=== PATIENT | female | born 1985 | race Caucasian/White ===

== ENCOUNTER 2020-01-22 09:28 | Emergency (ER) | payer MEDICAID, SELFPAY ==
[2020-01-22 10:07] VITALS: BP 117/65; PULSE 92; RESP 18; TEMP 36.9; O2SAT 98; BMI 49.6
--- NOTE | 2020-01-22 10:08 | HMH.EDUTC ---
[facility] [place] Impression: Sinusitis Qualifiers: Sinusitis location: maxillary Chronicity: acute Recurrence: non-recurrent Qualified Code(s): J01.00 - Acute maxillary sinusitis, unspecified Disposition: Home, Self-Care Condition on Discharge: Good Instructions: DI for Sinusitis Prescriptions: Amoxicillin [Amoxicillin 875MG Tab] 875 mg PO Q12H #20 tab Transmission Status: Pending to [facility] # predniSONE [Prednisone 20mg Tab] 20 mg PO BID 5 Days #10 tab Transmission Status: Pending to [facility] # Referrals: Gaby Staples [Primary Care Provider] - Time of Disposition: 10:13 Medical Decision Making - Timbo Inquiry Pt receiving controlled substance: No [facility] [place] - General Stated complaint: soa Time Seen by Provider: 01/22/20 10:08 - History of Present Illness Provider Complaint: Cough, congestion, wheezing, sinus pressure and drainage X 5 days. No fever. No vomiting or diarrhea. No loss of taste or smell. No known exposure to COVID19. Has history of allergies. Taking Sudafed and Mucinex. Onset (ago): day(s) (5) Location: chest Relieving factors: none Exacerbating factors: none Associated symptoms: cough Treatments prior to arrival: other (Mucinex, Sudafed) - Related Data Previous Rx's Medication Instructions Recorded Amoxicillin [Amoxicillin 875MG 875 mg PO Q12H #20 tab 01/22/20 Tab] predniSONE [Prednisone 20mg 20 mg PO BID 5 Days #10 tab 01/22/20 Tab] [facility] History - Hepatitis A Screen Attestation statement:: This patient has been screened for Hepatitis A risk factors. I have reviewed the patient's past medical history: Yes ROS Obtained: Yes All systems reviewed & no additional complaints - ENT Ears, Nose, Mouth, and Throat: Reports post nasal drip, Reports sinus pain, Reports sinus pressure - Respiratory Respiratory: Yes cough Physical Exam - General General appearance: alert, in no apparent distress - Head Head exam: atraumatic, normocephalic, normal inspection - Eye Eye exam: Present: normal appearance, PERRL, EOMI - ENT ENT exam: Present: normal exam, normal oropharynx, mucous membranes moist, TM's normal bilaterally, normal external ear exam - Expanded ENT Exam Nose exam: Present: sinus tenderness Throat exam: Present: other (post nasal drainage) - Neck Neck exam: Present: normal inspection, full ROM, trachea midline. Absent: meningismus, lymphadenopathy - Chest Chest inspection: Present: normal inspection, symmetric chest wall rise. Absent: tenderness - Respiratory Respiratory exam: Present: wheezes. Absent: respiratory distress - Cardiovascular Cardiovascular exam: Present: regular rate, normal rhythm. Absent: JVD - Abdominal Exam Abdominal exam: Present: soft, normal bowel sounds. Absent: distention, tenderness, guarding - Extremities Exam Extremities exam: Present: normal inspection, full ROM, normal capillary refill. Absent: calf tenderness - Back Exam Back exam: Present: normal inspection. Absent: tenderness - Neurological Exam Neurological exam: Present: alert, oriented X3 - Psychiatric Psychiatric exam: Present: normal affect, normal mood - Skin Skin exam: Present: warm, dry, intact, normal color - Lymphatic Lymphatic Findings: no adenopathy
[2020-01-22 10:22] VITALS: BP 117/65; PULSE 92; RESP 18; TEMP 36.9; O2SAT 98
== END 2020-01-22 10:40 | disposition home or self-care (01) ==
PROVIDERS: Emergency Provider Physician Assistant; PCP Family Medicine Geriatric Medicine
DX: J01.00 Acute maxillary sinusitis, unspecified (principal)
CPT/HCPCS: 99201

== ENCOUNTER 2020-05-17 11:58 | Emergency (ER) | payer SELFPAY ==
[2020-05-17 12:14] VITALS: BP 122/88; PULSE 94; RESP 16; TEMP 36.9; O2SAT 97; BMI 52.0
--- NOTE | 2020-05-17 12:32 | HMH.EDUTC ---
[facility] [place] Clinical Impression: Sinusitis Qualifiers: Sinusitis location: unspecified location Chronicity: acute Recurrence: non-recurrent Qualified Code(s): J01.90 - Acute sinusitis, unspecified Disposition: Home, Self-Care Condition on Discharge: Good Instructions: Sinusitis, DI for Sinusitis Additional Instructions: Drink plenty of fluids. Take tylenol for pain or fever. Return if you begin to have difficulty breathing. Follow up with your regular doctor. GO TO THE ER FOR ANY WORSENING SYMPTOMS Prescriptions: Amoxicillin/Potassium Clav [Augmentin 875-125 Tablet] 1 tab PO Q12H 10 Days #20 tab Transmission Status: Received by [facility] #[id number] predniSONE [Prednisone 20mg Tab] 20 mg PO BID 5 Days #10 tab Transmission Status: Received by [facility] # Benzonatate [Tessalon Perle 100mg Cap] 100 mg PO TIDP PRN #30 cap PRN Reason: Cough Transmission Status: Received by [facility] #[id number] Referrals: PCP,No [Primary Care Provider] - Forms: Work/School Release Time of Disposition: 12:35 Medical Decision Making - Medical Records Medical records reviewed: No: I reviewed the patient's medical records. - Timbo Inquiry Pt receiving controlled substance: No Vital Signs: 05/17/20 12:14 05/17/20 12:38 Temperature 98.4 F 98 F Temperature Source Oral Pulse Rate 86 Pulse Rate [Right] 94 H Respiratory Rate 16 14 Blood Pressure 120/79 Blood Pressure [Right Arm] 122/88 Blood Pressure Mean [Right Arm] 99 Blood Pressure Source [Right Arm] Automatic Cuff Blood Pressure Position [Right Arm] Sitting 02 Sat by Pulse Oximetry 97 Oxygen Delivery Method Room Air [facility] [place] HPI - General Stated complaint: possible sinus infection, cov test Time Seen by Provider: 05/17/20 12:32 Mode of Arrival: Ambulatory Source of Information: Patient Limitations: No Limitations Description of Symptoms (Recalled from Triage Doc. by RN): pt states she thinks she has a sinus infection. she is having sinus pressure, fraga, and nasal congestion. she says it feels the same as when she has had them in the past. however, her employer is requesting a covid test to return to work. HEENT Symptoms (Recalled from RN notes): Yes (nasal congestion, sinus pressure, FRAGA) Resp Symptoms (Recalled from RN notes): No Skin Symptoms (Recalled from RN notes): No MS Symptoms (Recalled from RN notes): No Functional Status (Recalled from RN notes): na - History of Present Illness Provider Complaint: She states that for the past 2 days she has had worsening sinus congestion, nasal drainage, sore throat and bilateral ear pain. She denies any known exposure to covid-19, but she works in a bank around a lot of people. - Related Data Previous Rx's Medication Instructions Recorded Amoxicillin/Potassium Clav 1 tab PO Q12H 10 Days #20 tab 05/17/20 [Augmentin 875-125 Tablet] Benzonatate [Tessalon Perle 100mg 100 mg PO TIDP PRN #30 cap 05/17/20 Cap] predniSONE [Prednisone 20mg 20 mg PO BID 5 Days #10 tab 05/17/20 Tab] Allergies Allergy/AdvReac Type Severity Reaction Status Date / Time No Known Allergies Allergy Verified 05/17/20 12:03 - Worker's Comp Is this a Worker's Comp case?: No [facility] History - Hepatitis A Screen Drug use history?: No High risk sexual behaviors?: No History of sexually transmitted infection?: No Currently employed?: No Childcare worker?: No Do you have indoor plumbing?: Yes Do you have electricity?: Yes Attestation statement:: This patient has been screened for Hepatitis A risk factors. I have reviewed the patient's past medical history: Yes Medical History: Denies:: Cancer, Diabetes Mellitus Type 1, Diabetes Mellitus Type 2, Internal Pacemaker, MRSA Other Surgeries: No: Pacemaker Amputation: No Fractures: No - Social History Smoking Status: Current every day smoker Tobacco Type: cigarettes, smokeless tobacco # Packs/Day (cigarettes): 1 Al
[2020-05-17 12:38] VITALS: BP 120/79; PULSE 86; RESP 14; TEMP 36.6
--- NOTE | 2020-05-17 16:32 | PC.NURSE ---
called and left a message requesting her to call back.
--- NOTE | 2020-05-17 16:45 | PC.NURSE ---
called and spoke with pt relaying positive covid results.
== END 2020-05-17 12:41 | disposition home or self-care (01) ==
PROVIDERS: Emergency Provider Nurse Practitioner Family
DX: J01.90 Acute sinusitis, unspecified (principal)
CPT/HCPCS: 99202; G0463; U0003

== ENCOUNTER 2021-03-23 13:31 | Emergency (ER) | payer OTHER, SELFPAY ==
[2021-03-23 13:35] VITALS: BP 127/78; PULSE 92; RESP 20; TEMP 36.5; O2SAT 96; BMI 50.4
[2021-03-23 13:56] VITALS: BP 127/78; PULSE 92; RESP 20; TEMP 36.5; O2SAT 96
--- NOTE | 2021-03-23 13:59 | HMH.EDUTC ---
[facility] [place]ression: URI (upper respiratory infection) Qualifiers: URI type: unspecified URI Qualified Code(s): J06.9 - Acute upper respiratory infection, unspecified Disposition: Home, Self-Care Condition on Discharge: Good Instructions: Sore Throat, DI for Nasal Congestion Additional Instructions: *Monitor Temp, Over the counter Motrin or Tylenol as directed/as needed Tylenol every 4 hours and Motrin every 6 hours (as long as your family doctor has told you that you can take it) for fever or pain. and straight to ER if unable to lower temp less than 101.0 after medication given *Warm salt water gargles may help to soothe the throat *Throat Lozenges *Warm fluids like tea with honey may help to soothe the throat *Sleep elevated *Humidifier/Vaporizer Over the counter Sudafed for nasal congestion Return if needed Follow up IMMEDIATELY for new or worsening symptoms or no Noticeable improvement over the next 48-72 hours. 911 for difficulty breathing or swallowing Referrals: Provider,Referral, MD [Primary Care Provider] - As needed Forms: Work/School Release Medical Decision Making - Timbo Inquiry Pt receiving controlled substance: No Timbo was queried for this patient: No Vital Signs: 03/23/21 13:35 03/23/21 13:56 Temperature 97.7 F 97.7 F Temperature Source Temporal Artery Scan Pulse Rate 92 H Pulse Rate [Right Brachial] 92 H Respiratory Rate 20 20 Blood Pressure 127/78 Blood Pressure [Right Arm] 127/78 Blood Pressure Mean [Right Arm] 94 Blood Pressure Source [Right Arm] Automatic Cuff Blood Pressure Position [Right Arm] Sitting 02 Sat by Pulse Oximetry 96 Oxygen Delivery Method Room Air [facility] [place] - General Stated complaint: congestion Time Seen by Provider: 03/23/21 14:00 Mode of Arrival: Ambulatory Source of Information: Patient Limitations: No Limitations Description of Symptoms (Recalled from Triage Doc. by RN): PATIENT REPORTS SHE WAS SICK A FEW DAYS AGO AND NEEDS A NOTE TO RETURN TO WORK HEENT Symptoms (Recalled from RN notes): No Resp Symptoms (Recalled from RN notes): No Skin Symptoms (Recalled from RN notes): No MS Symptoms (Recalled from RN notes): No Functional Status (Recalled from RN notes): WNL - History of Present Illness Provider Complaint: Patient state that she has sinus issues States that she woke up a few days ago with sinus congestion and headache and was not able to go to work States that she has been taking sudafed and feels much better but work needs her to get a note to return - Related Data Previous Rx's Medication Instructions Recorded Amoxicillin/Potassium Clav 1 tab PO Q12H 10 Days #20 tab 05/17/20 [Augmentin 875-125 Tablet] Benzonatate [Tessalon Perle 100mg 100 mg PO TIDP PRN #30 cap 05/17/20 Cap] predniSONE [Prednisone 20mg 20 mg PO BID 5 Days #10 tab 05/17/20 Tab] Allergies Allergy/AdvReac Type Severity Reaction Status Date / Time No Known Allergies Allergy Verified 05/17/20 12:03 - Worker's Comp Is this a Worker's Comp case?: No [facility] History - Hepatitis A Screen Drug use history?: No High risk sexual behaviors?: No History of sexually transmitted infection?: No Currently employed?: No Childcare worker?: No Do you have indoor plumbing?: Yes Do you have electricity?: Yes Attestation statement:: This patient has been screened for Hepatitis A risk factors. I have reviewed the patient's past medical history: Yes Medical History: Denies:: Cancer, Diabetes Mellitus Type 1, Diabetes Mellitus Type 2, Internal Pacemaker, MRSA Other Surgeries: No: Pacemaker Amputation: No Fractures: No - Social History Smoking Status: Current every day smoker Tobacco Type: cigarettes, smokeless tobacco # Packs/Day (cigarettes): 1 Alcohol Intake: never Occupational Status: employed Housing: house Household Members: significant other ROS Obtained: Yes All systems reviewed & no additional complaints, Yes Syste
== END 2021-03-23 14:03 | disposition home or self-care (01) ==
PROVIDERS: Emergency Provider Nurse Practitioner
DX: J06.9 Acute upper respiratory infection, unspecified (principal); F17.210 Nicotine dependence, cigarettes, uncomplicated
CPT/HCPCS: 99202; G0463

== ENCOUNTER 2023-03-02 09:05 | Emergency (ER) | payer OTHER, SELFPAY ==
[2023-03-02 09:15] VITALS: BP 137/100; PULSE 122; RESP 20; TEMP 37.7; O2SAT 97; BMI 49.4
--- NOTE | 2023-03-02 09:41 | EXP.UTC ---
Discharge Plan Disposition Patient Disposition: Home, Self-Care Condition: Good Prescriptions Prescriptions: New prednisone [prednisone] 20 mg tablet 20 mg PO DAILY 4 Days Qty: 4 0RF No Action prednisone 20 MG tablet 20 mg PO BID 5 Days Qty: 10 0RF benzonatate 100 MG capsule 100 mg PO TIDP PRN (Reason: Cough) Qty: 30 0RF amoxicillin-pot clavulanate 1 EACH tablet 1 tab PO Q12H 10 Days Qty: 20 0RF Referrals Follow up/Referrals: Chace Lee MD [Primary Care Provider] - See instructions Activity Restrictions/Add. Instructions Additional Instructions/Restrictions: Drink plenty of fluids. Take tylenol or ibuprofen for pain or fever. Take the medications as directed. Follow up with your regular doctor. GO TO THE ER FOR ANY WORSENING SYMPTOMS Throw your tooth brush away and get a new one. Finis the amoxicillin that you are already taking. Clinical Impressions Clinical Impression: Strep throat Stand Alone Forms Stand Alone Forms: Work/School Release Instructions Patient Instructions: DI for Strep Throat, Strep Throat Discharge ED Provider: Edgar Amaya [facility] General Stated complaint: sore throat, cough Mode of Arrival: Ambulatory Source of Information: Patient Limitations: No Limitations Time Seen by Provider: 03/02/23 09:40 Description of Symptoms (Recalled from Triage Doc. by RN): PATIENT STATES SHE WAS DIAGNOSED WITH STREP ON 02/28 AND WAS GIVEN AMOXICILLIN, BUT HER SYMPTOMS HAVE GOTTEN WORSE HEENT Symptoms (Recalled from RN notes): Yes Resp Symptoms (Recalled from RN notes): No Skin Symptoms (Recalled from RN notes): No MS Symptoms (Recalled from RN notes): No Functional Status (Recalled from RN notes): WNL History of Present Illness Provider Complaint: She states that she was diagnosed with strep throat 2 days ago. She states that she is taking amoxicillin and not getting any better. She continues to have a severe sore throat. She denies any shortness of breath, drooling and other symptoms. She request a steroid shot and a bicillin shot. Related Data Previous Rx's Medication Instructions Recorded amoxicillin 875 mg-potassium 1 tab PO Q12H 10 days #20 tabs 05/17/20 clavulanate 125 mg tablet benzonatate 100 mg capsule 100 mg PO TIDP PRN Cough #30 caps 03/03/21 prednisone 20 mg tablet 20 mg PO BID 5 days #10 tabs 05/17/20 prednisone 20 mg tablet 20 mg PO DAILY 4 days #4 tabs 03/02/23 Allergies Allergy/AdvReac Type Severity Reaction Status Date / Time No Known Allergies Allergy Verified 05/17/20 12:03 Worker's Comp Is this a Worker's Comp case?: No [facility] Disclaimer: The information contained in this section may have been updated after the patient was seen, as this information can be updated by other users. Social History Smoking Status: Current every day smoker tobacco type: cigarettes packs per day: 1 and smokeless tobacco second hand exposure: No alcohol intake: never current occupational status: employed Travel in the last 8 weeks: None household members: significant other housing: house current occupational exposures/hazards: No caffeine: Yes ROS Obtained: Yes All systems reviewed & no additional complaints except as documented Constitutional Constitutional: Reports chills and Reports fever(s) Eyes Eyes: Denies eye discharge ENT Ears, Nose, Mouth, and Throat: Reports as per HPI Cardiovascular Cardiovascular: Denies chest pain Respiratory Respiratory: Denies chest congestion and Reports cough Gastrointestinal Gastrointestingal: Reports nausea; Denies abdominal pain, constipation, cramping, diarrhea or vomiting Musculoskeletal Musculoskeletal: Denies arthralgias Integumentary/Breasts Skin/Breast: Denies rash Neurologic Neurologic: Denies paresthesias Physical Exam General General appearance: alert and in no apparent distress Head Head exam: atraumatic, normocephalic and normal inspection Eye
[2023-03-02 10:13] VITALS: BP 137/100; PULSE 122; RESP 20; TEMP 37.7; O2SAT 97
== END 2023-03-02 10:16 | disposition home or self-care (01) ==
PROVIDERS: Emergency Provider Nurse Practitioner Family; PCP Emergency Medicine
DX: J02.0 Streptococcal pharyngitis (principal); R07.0 Pain in throat; R05.9 Cough, unspecified; R50.9 Fever, unspecified; F17.210 Nicotine dependence, cigarettes, uncomplicated
CPT/HCPCS: 96372; 99212; 99214; G0463; J0561

== ENCOUNTER 2024-10-13 10:24 | Outpatient (CLI) | payer BC, SELFPAY ==
--- OUTSIDE RECORDS SUMMARY | 2024-10-13 10:33 | XMS_ITS | Encounter Summary ---
Author Organization Healthcare Address [address] [place] [address] Care Team Providers Care Restaurant Manager Name Role Phone Ramiro Aceves MD Primary Care Provider [phone] Encounter Details Date Type Department Care Team (Late st Contact Info) Description 08/21/2017 Orders Only External Location [address] [place] [address] Ramiro Aceves MD [address] [place] [address] Social History Tobacco Use Types Packs/Day Years Used Date Smoking Tobacco: Never Assessed Comments Unknown Sex and Gender Information Value Date Recorded Sex Assigned at Not on file Legal Sex Female 8:27 PM EDT Gender Identity Female 05/13/2021 9:01 AM EST Sexual Orientation Not on file documented as of this encounter Plan of Treatment Not on file documented as of this encounter Procedures Procedure Name Priority Date/Time Associated Diagnosis Comments MAMMOGRAPHY OUTSIDE IMAGES UPLOAD 08/21/2017 1:20 PM EDT documented in this encounter Results * Mammography Outside Images Upload (08/21/2017 1:20 PM EDT) Anatomical Region Laterality Modality Mammography 08/21/2017 1:20 PM EDT us Ramiro Aceves MD IMG BI PROCEDURES Final Resul t documented in this encounter Visit Diagnoses Not on filedocumented in this encounter Care Teams Restaurant Manager Relationship Specialty Start Date End Date Ramiro Aceves MD [address] [place] [address] PCP - General 07/28/20 documented as of this encounter
--- OUTSIDE RECORDS SUMMARY | 2024-10-13 10:33 | XMS_ITS | Encounter Summary ---
Author Organization Healthcare Address [address] [place] [address] Care Team Providers Care Professor Of Marketing Name Role Phone Ramiro Aceves MD Primary Care Provider [phone] Encounter Details Date Type Department Care Team (Late st Contact Info) Description 02/13/2017 Orders Only External Location [address] [place] [address] Ramiro Aceves MD [address] [place] [address] Social History Tobacco Use Types [...] Associated Diagnosis Comments MAMMOGRAPHY OUTSIDE IMAGES UPLOAD 02/13/2017 2:07 PM EST documented in this encounter Results * Mammography Outside Images Upload (02/13/2017 2:07 PM EST) Anatomical Region Laterality Modality Mammography 02/13/2017 2:07 PM EST us Ramiro Aceves MD IMG BI PROCEDURES Final Resul t documented in this encounter Visit Diagnoses Not on filedocumented in this encounter Care Teams Professor Of Marketing Relationship Specialty Start Date End Date Ramiro Aceves MD [address] [place] [address] PCP - General 07/28/20 documented as of this encounter
--- OUTSIDE RECORDS SUMMARY | 2024-10-13 10:33 | XMS_ITS | Encounter Summary ---
Author Organization Healthcare Address [address] [place] [address] Care Team Providers Care Home Economist Consumer Service Name Role Phone Ramiro Aceves MD Primary Care Provider Encounter Details Date Type Department Care Team (Late st Contact Info) Description 08/08/2016 Orders Only External Location [address] [place] [address] Ramiro Aceves MD [address] [place] [address] Social History Tobacco Use Types Packs/Day Years [...] Procedure Name Priority Date/Time Associated Diagnosis Comments US OUTSIDE IMAGES 08/08/2016 3:56 PM EDT documented in this encounter Results * US OUTSIDE IMAGES (08/08/2016 3:56 PM EDT) Anatomical Region Laterality Modality Ultrasound 08/08/2016 3:56 PM EDT us Ramiro Aceves MD IMG US PROCEDURES Final Resul t documented in this encounter Visit Diagnoses Not on filedocumented in this encounter Care Teams Home Economist Consumer Service Relationship Specialty Start Date End Date Ramiro Aceves MD [address] [place] [address] PCP - General 07/28/20 documented as of this encounter
--- OUTSIDE RECORDS SUMMARY | 2024-10-13 10:33 | XMS_ITS | Clinical Summary ---
Author Organization Healthcare Address [address] [place] [address] Care Team Providers Care Avionics Manager Name Role Phone Ramiro Aceves MD Primary Care Provider [phone] Allergies No known active allergies Medications levonorgestrel (Mirena) 20 MCG/24HR IUD 1 each by Intrauterine route 1 (one) time. Active ALPRAZolam (Xanax) 2 MG tablet Take 1 tablet (2 mg) by mouth at night if needed for anxiety. Active albuterol 108 (90 Base) MCG/ACT inhalerIndicati ons:Acute bacterial bronchitis Inhale 2 puffs 4 (four) times a day. 1 each Active topiramate (Topamax Sprinkle) 25 MG capsule Take 1 capsule (25 mg) by mouth 2 (two) times a day. Do not crush or chew. Active Active Problems Problem Noted Date Diagnosed Date Sinusitis 05/12/2023 URI (upper respiratory infection) 05/12/2023 Allergic rhinitis 01/24/2022 Mixed anxiety and depressive disorder 01/24/2022 Migraine without aura 08/02/2021 Overview (05/12/2023): Problem Code: G43.009; Problem Code Type: ICD-10; Morbid obesity with body mass index (BMI) of 40. 0 or higher 04/26/2021 Family History Medical History Relation Name Comments Conversions - Other Father Pt Adopt ed: Family Hx Unknown Conversions - Other Mother Pt Adopt ed: Family Hx Unknown Relation Name Status Comments Father Mother Alive Social History Tobacco Use Types Packs/Day Years Used Date Smoking Tobacco: Former Cigarettes 0.5 18 1 999 - 2017 Passive Smoke Exposure: Past Smokeless Tobacco: Never Tobacco Cessation:Counseling Given: Not Answered Comments:Current vape user Alcohol Use Standard Drinks/Week Comments Not Currently 0 (1 standard drink = 0.6 oz pur e alcohol) PHQ-2 Answer Date Recorded Patient Health Questionnaire-2 Score 0 05/12/2023 Comments No Sex and Gender Information Value Date Recorded Sex Assigned at Not on file Legal Sex Female 8:27 PM EDT Gender Identity Female 05/13/2021 9:01 AM EST Sexual Orientation Not on file Last Filed Vital Signs Vital Sign Reading Time Taken Comments Blood Pressure 117/80 05/19/2023 3:22 PM EST Pulse 96 05/19/2023 3:22 PM EST Temperature 36.7 C (98.1 F) 05/19/2023 3:22 PM EST Respiratory Rate 18 05/19/2023 3:22 PM EST Oxygen Saturation 99% 05/19/2023 3:22 PM EST Inhaled Oxygen Concentration - - Weight 134 kg (296 lb) 05/19/2023 3:22 PM EST Height 165.1 cm (5' 5 ) 05/19/2023 3:22 PM EST Body Mass Index 49.26 05/19/2023 3:22 PM EST Plan of Treatment Health Maintenance Due Date Last Done Comments [facility]-Infant/Child/Adol SDOH Screenings 01/01/1984 [facility]-Varicella Vaccines (1 of 2 - 13+ 2-dose series) 12/30/1996 HPV Vaccines (1 - 3-dose series) 12/30/1998 [facility]- SDOH Screenings 12/30/2001 [facility]-Adult SDOH Screenings 12/30/2001 [facility]-DTaP,Tdap,and Td Vaccines (1 - Tdap) 12/30/2002 [facility]-Hepatitis B Vaccines (1 of 3 - 19+ 3-dose series) 12/30/2002 [id number] Vaccine ( - 2023- season) 2023 [facility]-Pap Smear 03/26/2024 03/26/2021, 08/2 08/2014, 01/06/2012, Additional history exists [facility]-Depression Screening 05/12/2024 05/12/2023 [facility]-Influenza Vaccine (#1) 2024 [facility]-Cervical Cancer Screening 03/26/2026 [facility]-HPV/Cotest 03/26/2026 03/26/2021, 10/16, 01/06/2012, Additional history exists [facility]-Zoster Vaccines (1 of 2) 12/30/2033 [facility]-HIV Screening Completed 04/12/2021 [facility]-Hepatitis C Screening Completed 04/12/2021 [facility]-Obesity Intervention Completed 024, 05/12/2023, 04/28/2023, Additional history exists [facility]-HIB Vaccines Aged Out No longer e ligible based on patient's age to complete this topic [facility]-Hepatitis A Vaccines Aged Out No longer eligible based on patient's age to complete this topic [facility]-IPV Vaccines Aged Out No longer e ligible based on patient's age to complete this topic [facility]-Pneumococcal Vaccine: Pediatrics (0 to 5 Years) and At-Risk Patients (6 to 49 Years) Aged Out No longer eligible based on patient's age to complete this topic [facility]-Rotavirus Vaccines Aged Out No lo nger eligible based on patient's age to complete this topic Procedures Procedure Name Priority Date/Time Associated Diagnosis Comments ACUTE HEPATITIS PANEL Routine 04/12/2021 4:25 PM EST Routine screening for STI (sexually transmitted infection) HIV 1/2 ANTIBODY/ANTIGEN SCREEN WITH REFLEX TO HIV I/II DIFFERENTIATION Routine 04/12/2021 4:25 PM EST Routine screening for STI (sexually transmitted infection) PAP TEST - CYTOLOGY Routine 03/26/2021 4 :19 PM EST Screening for malignant neoplasm of cervix from Last 3 Months or Most Recently Relevant to Health Maintenance Results * HIV 1 & 2 Antibody/Antigen Screen (04/12/2021 4:25 PM EST) HIV 1 & 2 Antibody/Anti gen Screen Nonreactive Nonreactive 04/12/2021 10:05 PM EST [facility] Blood Venous blood specimen / Unknown Venipuncture / Unknown 04/12/2021 4:25 PM EST 04/12/2021 4:25 PM EST us Elizabeth Gregory PHOTO MASK INSPECTOR LAB BLOOD ORDERABLES Final Re sult Performing Organization Address City/[facility] Co de Phone Number [facility] [address] [place] [address] * Acute Hepatitis Panel (04/12/2021 4:25 PM EST) Hepatitis B Surf Antigen Negative Negative 04/12/2021 10:53 PM EST [facility] Hepatitis C Antibody Negative Negative 04/12/2021 10:53 PM EST [facility] Hepatitis A Antibody IgM Negative Negative 04/12/2021 10:53 PM EST [facility] Hepatitis B Core Antibody IgM Negative Negative 04/12/2021 10:53 PM EST [facility] Blood Venous blood specimen / Unknown Venipuncture / Unknown 04/12/2021 4:25 PM EST 04/12/2021 4:25 PM EST us Elizabeth Gregory PHOTO MASK INSPECTOR LAB BLOOD ORDERABLES Final Re sult Performing Organization Address [facility] de Phone Number [facility] [address] [place] [address] * Pap Smear (03/26/2021 4:19 PM EST) Case Report Cytology Case: [id number] Authorizing Provider: Elizabeth Gregory APRN Collected: 03/26/2021 1619 Ordering Location: Medical Office Building Received: 03/26/2021 1638 Obstetrics and Gynecology First Screen: Tia Holcomb, [place] Rescreen: VICTOR HUGO Velásquez Specimen: ThinPrep Pap Test, Liquid-Based Cervical/Vaginal, CERVICAL/VAGINAL 03/30/2021 1:55 PM EST [facility] Interpretation NEGATIVE FOR INTRAEPITHELIAL LESION OR MALIGNANCY 03/30/2021 1:55 PM EST [facility] at 1355 EST Other Findings Inflammatory change. Trichomonas vaginalis. 03/30/2021 1:55 PM EST [facility] Specimen Adequacy Satisfactory for evaluation; endocervical/zhang sformation zone component present. Slide scanned and imaged by [employer] with manual review of all selected parra. 03/30/2021 1:55 PM EST [facility] Cervical cytology is a screening test primarily for squamous cancers and precursors and has associated false negative and positive results. New technologies such as liquid based sampling may decrease but will not eliminate all false negative results. Regular screening and follow-up of unexplained clinical signs and symptoms are recommended to minimize false negative results. Please see the ASCCP website (www.asccp.org)jadyn randle followup recommendations. If HPV testing was requested, correlation with the results is suggested (please call Microbiology at [phone] for results). 03/30/2021 1:55 PM EST [facility] Menstrual Status Cyclic 03/30/19 1:55 PM EST [facility] History of Hysterectomy Not Applicable 03/30/2021 1:55 PM EST [facility] Contraceptive History Not Applicable 03/30/2021 1:55 PM EST [facility] Last Menstrual Period 03/09/2021 03/30/2021 1:55 PM EST [facility] Screening Type Routine Screen 2021 1:55 PM EST [facility] High Risk? No 03/30/2021 1:55 PM EST [facility] HPV Testing Requested? Request HPV Testing Regardless of Pap Test Findings 03/30/2021 1:55 PM EST [facility] Previous Cancer History No 03/30/2021 1:55 PM EST [facility] Clinical Information Z12.4 - Screening for malignant neoplasm of cervix [ICD-10-CM] 03/30/2021 1:55 PM EST [facility] Swab Vaginal and cervical cytologic material / Unknown Non-blood Collection / Unknown 03/26/2021 4:19 PM EST 03/26/2021 4:38 PM EST us Elizabeth Gregory PHOTO MASK INSPECTOR LAB CYTOLOGY ORDERABLES Final Result [facility] [address] [place] [address] from Last 3 Months or Most Recently Relevant to Health Maintenance Insurance Care Teams Avionics Manager Relationship Specialty Start Date End Date Ramiro Aceves MD [address] [place] [address] PCP - General 07/28/20
--- OUTSIDE RECORDS SUMMARY | 2024-10-13 10:33 | XMS_ITS | Encounter Summary ---
Author Organization Healthcare Address [address] [place] [address] Care Team Providers Care Diesel Tractor Engine Mechanic Name Role Phone Ramiro Aceves MD Primary Care Provider [phone] Encounter Details Date Type Department Care Team (Late st Contact Info) Description 07/31/2016 Orders Only External Location [address] [place] [address] Ramiro Aceves MD [address] [place] [address] Social History Tobacco Use Types Packs/Day Years [...] Associated Diagnosis Comments MAMMOGRAPHY OUTSIDE IMAGES UPLOAD 07/31/2016 10:19 AM EDT documented in this encounter Results * Mammography Outside Images Upload (07/31/2016 10:19 AM EDT) Anatomical Region Laterality Modality Mammography 07/31/2016 10:1 9 AM EDT us Ramiro Aceves MD IMG BI PROCEDURES Final Resul t documented in this encounter Visit Diagnoses Not on filedocumented in this encounter Care Teams Diesel Tractor Engine Mechanic Relationship Specialty Start Date End Date Ramiro Aceves MD [address] [id number] PCP - General 07/28/20 documented as of this encounter
--- OUTSIDE RECORDS SUMMARY | 2024-10-13 10:33 | XMS_ITS | Encounter Summary ---
Author Organization Healthcare Address [address] [place] [address] Care Team Providers Care Estate Planning Attorney Name Role Phone Ramiro Aceves MD Primary Care Provider [phone] Encounter Details Date Type Department Care Team (Late st Contact Info) Description 07/31/2016 Orders Only External Location [address] [place] [address] Ramiro Aceves MD [address] [place] [address] Social History Tobacco Use Types [...] Name Priority Date/Time Associated Diagnosis Comments US BREAST OUTSIDE IMAGES 07/31/2016 11:23 AM EDT documented in this encounter Results * US BREAST OUTSIDE IMAGES (07/31/2016 11:23 AM EDT) Anatomical Region Laterality Modality Breast Mammography 07/31/2016 11:2 3 AM EDT Ramiro Aceves MD IMG BI PROCEDURES Final Resul t documented in this encounter Visit Diagnoses Not on filedocumented in this encounter Care Teams Estate Planning Attorney Relationship Specialty Start Date End Date Ramiro Aceves MD [address] [place] [address] PCP - General 07/28/20 documented as of this encounter
== END 2024-10-13 23:59 | disposition home or self-care (01) ==
LOC: RT 10:31
PROVIDERS: PCP Family Medicine; Visit Provider Physician Assistant
DX: I49.1 Atrial premature depolarization (principal)
CPT/HCPCS: 93270

== ENCOUNTER 2024-11-01 07:19 | Outpatient (CLI) | payer BC, SELFPAY ==
--- OUTSIDE RECORDS SUMMARY | 2024-11-01 07:22 | XMS_ITS | Encounter Summary ---
Author Organization Healthcare Address [address] [place] [address] Care Team Providers Care Yarder Name Role Phone Ramiro Aceves MD Primary Care Provider [phone] Encounter Details Date Type Department Care Team (Late st Contact Info) Description 02/13/2017 Orders Only External Location [address] [place] [address] Ramiro Aceves MD [address] [place] [address] Social History Tobacco Use Types [...] on filedocumented in this encounter Care Teams Yarder Relationship Specialty Start Date End Date Ramiro Aceves MD [address] [place] [address] PCP - General 07/28/20 documented as of this encounter
--- OUTSIDE RECORDS SUMMARY | 2024-11-01 07:22 | XMS_ITS | Encounter Summary ---
Author Organization Healthcare Address [address] [place] [address] Care Team Providers Care Lay Out Helper Name Role Phone Ramiro Aceves MD Primary Care Provider [phone] Encounter Details Date Type Department Care Team (Late st Contact Info) Description 07/31/2016 Orders Only External Location [address] [place] [address] Ramiro Aceves MD [address] [place] [address] Social History Tobacco Use Types [...] on filedocumented in this encounter Care Teams Lay Out Helper Relationship Specialty Start Date End Date Ramiro Aceves MD [address] [place] [address] PCP - General 07/28/20 documented as of this encounter
--- OUTSIDE RECORDS SUMMARY | 2024-11-01 07:22 | XMS_ITS | Encounter Summary ---
Author Organization Healthcare Address [address] [place] [address] Care Team Providers Care Immigration Investigator Name Role Phone Ramiro Aceves MD Primary Care Provider [phone] Encounter Details Date Type Department Care Team (Late st Contact Info) Description 07/31/2016 Orders Only External Location [address] [place] [address] Ramiro Aceves MD [address] [place] [address] Social History Tobacco Use Types Packs/Day Years [...] on filedocumented in this encounter Care Teams Immigration Investigator Relationship Specialty Start Date End Date Ramiro Aceves MD [address] [id number] PCP - General 07/28/20 documented as of this encounter
--- OUTSIDE RECORDS SUMMARY | 2024-11-01 07:22 | XMS_ITS | Clinical Summary ---
Author Organization Healthcare Address [address] [place] [address] Care Team Providers Care Multimedia Journalist Name Role Phone Ramiro Aceves MD Primary Care Provider [phone] Allergies No known active allergies Medications levonorgestrel [...] Health Maintenance Due Date Last Done Comments [facility]-/Child/Adol SDOH Screenings 01/01/1984 [facility]-Varicella Vaccines (1 of 2 - 13+ 2-dose series) 12/30/1996 [facility]- SDOH Screenings 12/30/2001 [facility]-Adult SDOH Screenings 12/30/2001 [facility]-DTaP,Tdap,and Td Vaccines (1 - Tdap) 12/30/2002 [facility]-Hepatitis B Vaccines (1 of 3 - 19+ 3-dose series) 12/30/2002 HPV Vaccines (1 - 3-dose SCDM series) 12/30/2010 [id number] Vaccine (1 - 2023- season) 2023 [facility]-Pap Smear 03/26/2024 03/26/2021, 08/2 08/2014, 01/06/2012, Additional history exists [facility]-Depression Screening 05/12/2024 05/12/2023 [facility]-Influenza Vaccine (#1) 2024 [facility]-Cervical Cancer Screening 03/26/2026 [facility]-HPV/Cotest 03/26/2026 03/26/2021, 03/17, 11/09/2014, Additional history exists [facility]-Zoster Vaccines (1 of [...] infection) PAP TEST - CYTOLOGY Routine 03/26/2021 4:19 PM EST Screening for malignant neoplasm of cervix from Last 3 Months or Most Recently Relevant to Health Maintenance Results * HIV 1 & 2 Antibody/Antigen Screen (04/12/2021 4:25 PM EST) HIV 1 & 2 Antibody/Anti gen Screen Nonreactive Nonreactive 04/12/2021 10:05 PM EST [facility] Blood Venous blood specimen / Unknown Venipuncture / Unknown 04/12/2021 4:25 PM EST 04/12/2021 4:25 PM EST us Elizabeth Gregory VENDING MACHINE TECHNICIAN LAB BLOOD ORDERABLES Final Re sult Performing Organization Address City/[facility] Co de Phone Number [facility] [address] [place] [address] * Acute Hepatitis Panel (04/12/2021 4:25 PM EST) Hepatitis B Surf Antigen Negative Negative 04/12/2021 10:53 PM EST [facility] Hepatitis C Antibody Negative Negative 04/12/2021 10:53 PM EST [facility] Hepatitis A Antibody IgM Negative Negative 04/12/2021 10:53 PM EST [facility] Hepatitis B Core Antibody IgM Negative Negative 04/12/2021 10:53 PM EST [facility] Blood Venous blood specimen / Unknown Venipuncture / Unknown 04/12/2021 4:25 PM EST 04/12/2021 4:25 PM EST us Elizabeth Gregory VENDING MACHINE TECHNICIAN LAB BLOOD ORDERABLES Final Re sult Performing Organization Address [facility] de Phone Number [facility] [address] [place] [address] * Pap Smear (03/26/2021 4:19 PM EST) Case Report Cytology Case: [id number] Authorizing Provider: Elizabeth Gregory APRN Collected: 03/26/2021 1619 Ordering Location: Medical Office Building Received: 03/26/2021 1638 Obstetrics and Gynecology First Screen: Tia Holcomb, [place] Rescreen: VICTOR HUGO Velásquez Specimen: ThinPrep Pap Test, Liquid-Based Cervical/Vaginal, CERVICAL/VAGINAL 03/30/2021 1:55 PM EST [facility] Interpretation NEGATIVE FOR INTRAEPITHELIAL LESION OR MALIGNANCY 03/30/2021 1:55 PM EST [facility] at 1355 EST Other Findings Inflammatory change. Trichomonas vaginalis. 03/30/2021 1:55 PM EST [facility] Specimen Adequacy Satisfactory for evaluation; endocervical/zhang sformation zone component present. Slide scanned and imaged by [employer] System with manual review of all selected parra. 03/30/2021 1:55 PM EST [facility] Cervical cytology is a screening test primarily for squamous cancers and precursors and has associated false negative and positive results. New technologies such as liquid based sampling may decrease but will not eliminate all false negative results. Regular screening and follow-up of unexplained clinical signs and symptoms are recommended to minimize false negative results. Please see the ASCCP website (www.asccp.org)fo r followup recommendations. If HPV testing was requested, correlation with the results is suggested (please call Microbiology at [phone] for results). 03/30/2021 1:55 PM EST [facility] Menstrual Status Cyclic 03/30/19 1:55 PM EST [facility] History of Hysterectomy Not Applicable 03/30/2021 1:55 PM EST [facility] Contraceptive History Not Applicable 03/30/2021 1:55 PM EST [facility] Last Menstrual Period 03/09/2021 03/30/2021 1:55 PM EST [facility] Screening Type Routine Screen 2021 1:55 PM EST [facility] High Risk? No 03/30/2021 1:55 PM EST [facility] HPV Testing Requested? Request HPV Testing Regardless of Pap Test Findings 03/30/2021 1:55 PM EST [facility] Previous Cancer History No 03/30/2021 1:55 PM EST [facility] Clinical Information Z12.4 - Screening for malignant neoplasm of cervix [ICD-10-CM] 03/30/2021 1:55 PM EST [facility] Swab Vaginal and cervical cytologic material / Unknown Non-blood Collection / Unknown 03/26/2021 4:19 PM EST 03/26/2021 4:38 PM EST us Elizabeth Gregory APRN LAB CYTOLOGY ORDERABLES Final Result [facility] [address] [place] [address] from Last 3 Months or Most Recently Relevant to Health Maintenance Insurance [employer] Care Teams Multimedia Journalist Relationship Specialty Start Date End Date Ramiro Aceves MD [facility] [phone] PCP - General 07/28/20
--- OUTSIDE RECORDS SUMMARY | 2024-11-01 07:22 | XMS_ITS | Clinical Summary ---
[facility] Address [address] [place] [address] Care Team Providers Care Stock Broker Supervisor Name Role Phone Ervin Guadarrama MD Primary Care Provider [phone] Allergies No known active allergies Medications methocarbamol (ROBAXIN) 500 MG tablet TAKE 2 TABLETS BY MOUTH EVERY 6 HOURS NEEDED FOR MUSCLE SPASMS 0 9 Active ibuprofen (ADVIL,MOTRIN) 800 MG tabletIndicatio ns:Sore throat Take 1 tablet by mouth Every 8 (Eight) Hours As Needed for Mild Pain . 90 tablet 9 Active ALPRAZolam (XANAX) 1 MG tablet TAKE 1/2 TO 1 (ONE-HALF TO ONE) TABLET BY MOUTH ONCE DAILY NEEDED FOR BREAKTHROUGH PANIC Active celecoxib (CeleBREX) 200 MG capsule Take 1 capsule by mouth 2 (Two) Times a Day. 60 capsule 3 4 Active Active Problems No known active problems Social History Tobacco Use Types Packs/Day Years Used Date Smoking Tobacco: Former Cigarettes S tarted: 2000 Passive Smoke Exposure: Past Smokeless Tobacco: Never Tobacco Cessation:Counseling Given: Not Answered Alcohol Use Standard Drinks/Week Comments Never 0 (1 standard drink = 0.6 oz pur e alcohol) Abuse Screen Answer Date Recorded Unsafe at Home or Work/School Not on file Feels Threatened by Someone? Not on file 01/2023 Does Anyone Keep You from Co ntacting Others or Doint Things Outside the Home? Not on file 12/25/2022 Physical Sign of Abuse Present Not on file 1 Housing Stability Answer Date Recorded Current Living Arrangements Not on file 12/15 Potentially Unsafe Housing Conditions Not on louisa e 12/25/2022 Family and Community Support Answer Piero e Recorded Help with Day-to-Day Activities Not on file 12/25/2022 Lonely or Isolated Not on file 12/25/2022 Employment Answer Date Recorded Do you want help finding or keeping work or a [place] b? Not on file 12/25/2022 Disabilities Answer Date Recorded Concentrating, Remembering, or Making Decisions Difficulty Not on file 12/25/2022 Doing Errands Independently Difficulty Not on fi le 12/25/2022 Education Answer Date Recorded Help with school or training? Not on file Preferred Language Not on file 12/25/2022 Comments No Sex and Gender Information Value Date Recorded Sex Assigned at Not on file Legal Sex Female 3:39 PM EDT Gender Identity Not on file Sexual Orientation Not on file Last Filed Vital Signs Vital Sign Reading Time Taken Comments Blood Pressure 122/86 11/03/2023 1:17 PM EDT Pulse 87 11/03/2023 1:17 PM EDT Temperature 36.8 C (98.2 F) 11/03/2023 1:17 PM EDT Respiratory Rate 14 02/19/2019 12:03 PM EST Oxygen Saturation 99% 02/19/2019 12:03 PM EST Inhaled Oxygen Concentration - - Weight 141 kg (311 lb 8 oz) 11/03/2023 1:17 PM E DT Height 165.1 cm (5' 5 ) 11/03/2023 1:17 PM EDT Body Mass Index 51.84 11/03/2023 1:17 PM EDT Plan of Treatment Health Maintenance Due Date Last Done Comments Annual Gynecologic Pelvic an d Breast Exam 1983 TDAP/TD VACCINES (1 - Tdap) 12/30/2002 PAP SMEAR 12/30/2004 ANNUAL PHYSICAL 03/24/2018 COVID-19 Vaccine (2023-2 5 season) 2023 MAMMOGRAM 2023 08/21/2017, 02/13/2017, 07/31/2016 INFLUENZA VACCINE 12/15/2024 HEPATITIS C SCREENING Completed 04/12/2021 Pneumococcal Vaccine 0-49 Aged Out No longer eligible based on patient's age to complete this topic Procedures Procedure Name Priority Date/Time Associated Diagnosis Comments MAMMO DIAGNOSTIC DIGITAL TOMOSYNTHESIS BILATERAL W CAD Routine 08/21/2017 1:51 PM EDT Abnormal mammogram from Last 3 Months or Most Recently Relevant to Health Maintenance Results * Mammo Diagnostic Digital Tomosynthesis Bilateral With CAD (08/21/2017 1:51 PM EDT) Anatomical Region Laterality Modality Breast Bilateral Mammography 08/21/2017 2:54 PM EDT Impressions 08/21/2017 3:20 PM EDT BI-RADS 2 BENIGN FINDINGS RECOMMENDATION: Routine annual screening mammography in one year unless clinically indicated sooner. The standard false-negative rate of mammography is between 10% and 25%. Complex patterns or increased breast density will markedly elevate the false-negative rate of mammography. A results letter, in lay terminology, will be given to the patient at the conclusion of the exam. This report was finalized on 08/21/2017 3:[address] Lainey Peralta MD. Narrative 08/21/2017 3:20 PM EDT EXAMINATION: BILATERAL DIAGNOSTIC DIGITAL MAMMOGRAM WITH TOMOSYNTHESIS: HISTORY: Continued surveillance of benign-appearing oval masses in the right upper outer quadrant thought to reflect inframammary lymph nodes as well as a sebaceous cyst in the left 9:00 area. TECHNIQUE: Combination 2-D 3-D standard views of both breasts were performed. COMPARISON: Comparison is made to prior mammograms dated back to 07/31/2016. FINDINGS: The breast tissue is fatty replaced. No suspicious masses, microcalcifications or areas of architectural distortion are identified. Benign-appearing calcifications in the medial lower left breast posteriorly and oval masses in the upper outer quadrant of the right breast with fatty juvenal in keeping with benign intramammary lymph nodes are stable. us Ramiro Aceves MD IMG MAMMOGRAPHY ORDERABLE S Final Result from Last 3 Months or Most Recently Relevant to Health Maintenance Insurance [employer] Care Teams Stock Broker Supervisor Relationship Specialty Start Date End Date Ervin Guadarrama MD [address] [place] [address] PCP - General Family Medicine 11/03/23
--- OUTSIDE RECORDS SUMMARY | 2024-11-01 07:22 | XMS_ITS | Encounter Summary ---
Author Organization Healthcare Address [address] [place] [address] Care Team Providers Care Deputy Fire Marshal Name Role Phone Ramiro Aceves MD Primary Care Provider [phone] Encounter Details Date Type Department Care Team (Late st Contact Info) Description 08/21/2017 Orders Only External Location [address] [place] [address] Ramiro Aceves MD [address] [place] [address] Social History Tobacco Use Types [...] on filedocumented in this encounter Care Teams Deputy Fire Marshal Relationship Specialty Start Date End Date Ramiro Aceves MD [address] [place] [address] PCP - General 07/28/20 documented as of this encounter
--- OUTSIDE RECORDS SUMMARY | 2024-11-01 07:22 | XMS_ITS | Encounter Summary ---
Author Organization Healthcare Address [address] [place] [address] Care Team Providers Care Director Of Photography Name Role Phone Ramiro Aceves MD Primary Care Provider [phone] Encounter Details Date Type Department Care Team (Late st Contact Info) Description 08/08/2016 Orders Only External Location [address] [place] [address] Ramiro Aceves MD [address] [place] [address] Social History Tobacco Use Types Packs/Day Years [...] on filedocumented in this encounter Care Teams Director Of Photography Relationship Specialty Start Date End Date Ramiro Aceves MD [address] [place] [address] PCP - General 07/28/20 documented as of this encounter
[2024-11-01 07:29] VITALS: BMI 52.0
[2024-11-01 07:43] LABS: Urine Pregnancy, HCG Qual. Negative (Negative)
[2024-11-01 07:49] VITALS: BP 136/89; PULSE 90; RESP 16; TEMP 36.1; O2SAT 99
[2024-11-01] MEDS: METOPROLOL TARTRATE 50MG TABLET PO ×2 (07:55→08:36)
[2024-11-01] MEDS: IVABRADINE HCL 7.5MG TABLET PO (07:56)
[2024-11-01 08:02] LABS: Chloride 103 mmol/L (98-107); Potassium 3.8 mmoL/L (3.5-5.1); Sodium 137 mmol/L (136-145)
[2024-11-01 08:05] LABS: Anion Gap 10.8 mEq/L (5-15); Blood Urea Nitrogen 14 mg/dl (7-17); Carbon Dioxide 27 mmol/L (22.0-30.0); Creatinine Clearance Estimated 84 mL/min (50-200); Creatinine,Serum 0.80 mg/dl (0.52-1.04); Estimated Glomerular Filt Rate 79 ml/min (>60); GFR (African American) 96 ML/MIN (>60)
[2024-11-01 08:06] LABS: Calcium 9.0 mg/dl (8.4-10.2); Glucose 99 mg/dl (74-100)
--- NOTE | 2024-11-01 08:30 | CT_ITS ---
APPROVED REPORT Risk Control Specialist: CLINICAL INDICATION Chest Pain TECHNIQUE Image Acquisition: A 128 slice MDCT scanner (Equioma View) was used for data acquisition. A noncontrast coronary calcium scan was performed. A CT attenuation threshold of 130 Hounsfield units (HU) was used for the detection of calcium in contiguous voxels of 1 sq mm in area to be counted as individual lesions. Bolus tracking in the ascending aorta with a threshold of 180 HU was performed. Immediately afterwards, ECG synchronized cardiac CT was then performed from the cardiac base to apex using retrospective gating with ECG tube current modulation. A total of 85 mL of Isovue 370 mg/mL contrast medium was administered at 5 mL/sec followed by a saline flush using a biphasic injection protocol. A tube voltage of 120 KVp was used. The patient received the following medications prior to the cardiac CT. 150 mg of oral metoprolol 15 mg of oral ivabradine 0.4 mg of sublingual nitroglycerin The average heart rate at the time of acquisition was 74 bpm and regular. Image Reconstruction Transaxial images were reconstructed at 0.67 mm slide thickness. Data was reviewed interactively on an advanced workstation capable of 2 and 3-dimensional displays in all conventional reconstruction formats, including multiplanar reformations, maximum intensity projections, curved multiplanar reformations, and volume rendered reconstructions. When applicable, selected routine images describing the relevant coronary anatomy and pathology were saved and sent to PACS. Complications None Technical Quality Overall image quality was fair. Coronary artery opacification was adequate. Total DLP (Dose-Length Product) is 1957.2 mGy-cm. The reported value represents the total of one or more individual components during the CT acquisition of this date and at this time, and as such, the same value may appear in more than one CT report depending on the interpreting/reporting physicians. COMPARISON None FINDINGS CT Coronary Calcium Scoring LMA (Left Main Artery) = 0 LAD (Left Anterior Descending) = 0 LCX (Left Coronary Circumflex) = 0 RCA (Right Coronary Artery) = 0 Total Calcium Score = 0 using the AJ-130 method. The interpretation of the calcium heart score is based on the following continuum*: 0 = no calcified plaque detected (risk of coronary artery disease is very low ??? less than 5%) 1-10 = calcium detected in extremely minimal levels (risk of coronary diseases is still low ??? less than 10%) 11-100 = mild levels of plaque detected with certainty (mild or minimal narrowing of heart arteries is likely) 101-400 = definite,at least moderate levels of plaque detected (relatively high risk of a heart attack within 3-5 years) >401-999 = extensive levels of plaque detected (high risk of heart attack, high levels of vascular disease are present, high likelihood of at least one significant coronary narrowing) *The calcium heart score quantifies the burden of coronary calcification/plaque in the coronary arteries. The calcium heart score is not able to evaluate the presence or burden of non-calcified (i.e. soft) plaque. There is no identifiable calcification in the aortic valve, mitral annulus or mitral valve, pericardium, or myocardium. Coronary CT Angiography The coronary arterial system is right dominant. Quantitative Stenosis Grading: Left Main (LM): The left main originates normally from the left sinus of Valsalva. The LM bifurcates into the left anterior descending artery and left circumflex artery. The LM is patent with no evidence of atherosclerosis. Left Anterior Descending (LAD) and Diagonal Branches: The LAD gives off 3 diagonal branch(es). The LAD and its branches are patent with no evidence of atherosclerosis. There is no evidence of LAD-myocardial bridge. Left Circumflex (LCX) and Obtuse Marginals (OM): The LCX gives off 1 Obtuse Marginal (OM) branch(es). The LCX and its branches are patent with no evidence of atherosclerosis. Right Coronary Artery (RCA): The RCA originates normally from the right sinus of Valsalva. The RCA gives off a posterior descending artery (PDA) and posterolateral (PL) branches. The RCA and its branches are patent with no evidence of atherosclerosis. Non-Coronary Cardiac Findings: Analysis of the left ventricular (LV) structure and function was performed after 3-D reconstruction of the LV from axial images, with user-corrected automatic contouring for assessment of LV volumes and user-defined reconstruction from oblique planes for measurement of 3-D cardiac structure and function. -The left ventricle systolic function is normal. -There is no left atrial appendage filling defect. Two right pulmonary veins and two left pulmonary veins drain normally into the left atrium. -No pericardial thickening or calcification. -Central and branch pulmonary arteries in the [id number] are unremarkable. -Thoracic aorta within the visualized thoracic aortic-branches in the [id number] is unremarkable. Extracardiac Structures No significant extra-cardiac findings. Note, however, that this study is focused on the cardiac findings. IMPRESSION -Absence of coronary calcification with an Agatston score = 0 using the AJ-130 method. -No evidence of significant flow-limiting atherosclerosis of the coronary arteries. -No evidence of coronary anomalies. -CAD-RADS 0. Management recommendations per ACC/AHA guidelines*, as clinically appropriate. *Recommendations: CAD RADS 0: Reassurance. Consider non-atherosclerotic causes of chest pain. CAD RADS 1: Consider non-atherosclerotic causes of chest pain. Consider preventive therapy and risk factor modification. CAD RADS 2: Consider non-atherosclerotic causes of chest pain. Consider preventive therapy and risk factor modification, particularly for patients with nonobstructive plaque in multiple segments. CAD RADS 3: Consider further functional testing. Consider symptom-guided anti-ischemic and preventive pharmacotherapy as well as risk factor modification per published guideline statements. CAD RADS 4A: Consider further functional testing or invasive coronary angiography with revascularization per published guideline statements. Consider symptom-guided anti-ischemic and preventive pharmacotherapy as well as risk factor modification per published guideline statements. CAD RADS 4B: Invasive coronary angiography recommended with revascularization per published guideline statements. Consider symptom-guided anti-ischemic and preventive pharmacotherapy as well as risk factor modification per published guideline statements. CAD RADS 5: Consider invasive angiography and/or viability assessment with revascularization per published guideline statements. Consider symptom-guided anti-ischemic and preventive pharmacotherapy as well as risk factor modification per published guideline statements. CRITICAL RESULT None COMMUNICATION Per this written report The coronary and cardiac findings of this CCTA were reviewed, reported, and signed by Mark Anthony Donis MD (Design Maker) Conclusion Electronically signed by : Sheela Donis MD 11/02/2024 13:42:10
[2024-11-01 08:51] VITALS: BP 123/87; PULSE 75; RESP 16; O2SAT 96
[2024-11-01 08:54] VITALS: BP 109/75; PULSE 77; RESP 18; O2SAT 96
[2024-11-01] MEDS: SODIUM CHLORIDE 0.9% 10ML SYR (RAD ONLY) 10 ML IV (09:08)
[2024-11-01] MEDS: 0.9 % SODIUM CHLORIDE 50 ML VIAL 40 ML IV (09:08)
[2024-11-01] MEDS: IOPAMIDOL-370 (76%);100ML BOTTLE 91 ML IV (09:08)
== END 2024-11-01 09:10 | disposition home or self-care (01) ==
PROVIDERS: PCP Family Medicine; Visit Provider Physician Assistant
DX: R00.2 Palpitations (principal); R53.83 Other fatigue; R53.81 Other malaise; R07.89 Other chest pain
CPT/HCPCS: 75574; 80048; 81025; Q9967

== ENCOUNTER → 2025-01-10 06:11 | Outpatient (CLI) | payer BC, SELFPAY ==
--- OUTSIDE RECORDS SUMMARY | 2024-12-17 07:44 | XMS_ITS | Continuity of Care Document ---
Author Organization [facility] Phone Care Team Providers Care Hadoop Architect Name Role Phone DAVID CARMONA Admitting KARLA ARANGO Primary Care DAVID CARMONA Primary Attending DAVID CARMONA Unavailable ALLERGIES AND ADVERSE REACTIONS ALLERGIES AND ADVERSE REACTIONS Code System Allergy Substance Adverse Reaction Date Reaction (Severity) Comment Status Reported By Updated By No Known Allergies [id number] on August 08, 2023 11:45:[address] [facility] RESULTS Patient: EJ Galvez Date of : December 30 LABORATORY RESULTS Information is not available LABORATORY NARRATIVE RESULTS Information is not available RADIOLOGY RESULTS ORDER 100: KNEE 3V RT (LOINC : 79107-5) ORDER DATE: December 15, 2024 8:34:[address] [facility] PERFORMING LAB: [address] [id number] Final Result Date: December 8:46:[address] [place] [address] Name: JAVY PAGAN Exam Date: 12/15/2024 : 1985 Age 38 years Gender: F Physician: DAVID CARMONA Facility: [facility] Facility HSV: Outpatient Exam: KNEE 3V RT EXAMINATION: XR RIGHT KNEE CLINICAL INDICATION: Female, 38 years old. Pain in Right knee TECHNIQUE: 3 view radiograph of the right knee were obtained. [id number]. COMPARISON: No prior exam. FINDINGS: Trace osteoarthritis at the medial weightbearing compartment. No fracture or dislocation. No other abnormal bone or soft tissue findings. IMPRESSION: Trace osteoarthritis at the medial weightbearing compartment. Electronically signed by: Shar Valenzuela MD 12/16/2024 03:45 AM EDT RP Dictated By: SHAR VALENZUELA Transcribed By: Transcribed On: 12/15/2024 4:46 PM Electronically signed by: SHAR VALENZUELA 12/15/2024 Thank you for referring JAVY PAGAN to [facility]. Legally authenticated by NICOLAS RODRIGUEZ MD 2024-12-15 16:46:17 PATHOLOGY NARRATIVE RESULTS Information is not available MICROBIOLOGY RESULTS No Micro Labs/Results Exist for Patient BLOOD ADMIN RESULTS Information is not available MEDICATIONS HOME MEDICATIONS Status RXNORM NDC Medication Dose Route Frequency Dates Comments Reported By Updated By Drug Treatment Unknown DISCHARGE MEDICATIONS Status RXNORM NDC Medication Dose Route Frequency Dates Dis pense Data Comments Physician Updated By No Discharge Medication Info rmation Available INPATIENT MEDICATIONS Status RXNORM NDC Medication Dose Route Frequency Rat e Quantity Dates Indication Dispense Data Comments Physician Updated By No Inpatient Medication Info rmation Available SOCIAL HISTORY SOCIAL HISTORY - Smoking Status SNOMED-CT Social History Element Description Effective Dates Offered Cessation Comment Updated By [id number] Smoking Status Unknown If Ever Smoked SOCIAL HISTORY - Gender Sex: Female SOCIAL HISTORY - Status : status i nformation is not available Intention in Next Year: intention information is not available SOCIAL HISTORY - Assessments Code System Description Status Date Value of Assessment Updated By Comment Assessment Information is no t available SOCIAL HISTORY - [place] Affiliation [place] information is not av ailable SOCIAL HISTORY - Legal Sex Legal Sex information is not available SOCIAL HISTORY - Sexual Behavior Sexual Orientation Gender Identity SNOMED-CT Description SNO MED -CT Description Activity Level No of Partners Partner Type UpdatedBy Information is not available SOCIAL HISTORY - Occupation Occupation information is no t available HEALTH CONCERNS Problems Concern Status Health Concern problem infor mation not available. Smoking Status Status Years Used Consumed packs p er day Health Concern smoking histo ry information not available. Family History Concern Status Health Concern family histor y information not available. ENCOUNTERS ENCOUNTER INFORMATION Reason for Visit M25.561 Admission December 15, 2024 8:22:[address] [facility] [address] [address] Discharge December 15, 2024 8:22:00 PM UTC D ISCHARGED TO HOME OR SELF CARE ENCOUNTER DIAGNOSES Notes information is not levi ilable. Code System Diagnosis Onset Date Diagnosis information is not available. ABSTRACT DIAGNOSES Code System Diagnosis Updated By Abatement Date M25.561 ICD10 PAIN IN RIGHT KNEE [id number] o n December 17, 2024 11:43:49 AM UTC M17.11 ICD10 UNILATERAL PRIMA RY OSTEOARTHRITIS, RIGHT KNEE [id number] on December 17, 2024 11:43:49 AM UTC CARE TEAM Care Hadoop Architect Role DAVID CARMONA Admitting KARLA ARANGO Primary Care DAVID CARMONA Primary Attending DAVID CARMONA Referring CARE TEAM CARE mill stenciler Role on Team Location Telecom Status Start Date End Piero e Updated By CONCHITA ACOSTA MD PHY PCP normal December 15, 2024 4:00:[address] [facility] December 15, 2024 8:22:00 PM [place] [id number] on December 15, 2024 8:23:32 PM [facility] MATHEW Lewis PA-C Referring normal December 15, 2024 4:00:[address] [facility] December 15, 2024 8:22:00 PM [place] [id number] on December 15, 2024 8:23:[address] [facility] MATHEW Lewis PA-C Attending normal December 15, 2024 4:00:[address] [facility] December 15, 2024 8:22:00 PM [place] [id number] on December 15, 2024 8:23:[address] [facility] MATHEW Lewis PA-C Admitting normal December 15, 2024 4:00:[address] [facility] December 15, 2024 8:22:00 PM [place] [id number] on December 15, 2024 8:23:[address] [facility]
--- OUTSIDE RECORDS SUMMARY | 2024-12-20 00:49 | XMS_ITS | Continuity of Care Document ---
Author Organization [facility] Phone Care Team Providers Care Campus Director Name Role Phone DAVID CARMONA Unavailable DAVID CARMONA Primary Attending [phone] DAVID CARMONA Admitting KARLA ARANGO Primary Care ALLERGIES AND ADVERSE REACTIONS ALLERGIES AND ADVERSE REACTIONS Code System Allergy Substance Adverse Reaction Date Reaction (Severity) Comment Status Reported By Updated By No Known Allergies [id number] on August 08, 2023 11:45:47 AM [facility] RESULTS Patient: EJ Galvez Date of : December 30 LABORATORY RESULTS Information is not available LABORATORY NARRATIVE RESULTS Information is not available RADIOLOGY RESULTS ORDER 100: MRI KNEE WITHOUT CONT RT (LOINC: 58208-9) ORDER DATE: December 17, 2024 12:49:00 PM [facility] PERFORMING LAB: [address] [id number] Final Result Date: December 1:34:[address] [place] [address] Name: JAVY PAGAN Exam Date: 12/17/2024 : 1985 Age 38 years Gender: F Physician: DAVID CARMONA Facility: [facility] Facility HSV: Outpatient Exam: MRI KNEE WITHOUT CONT RT MR KNEE WITHOUT IV CONTRAST RIGHT, 12/17/2024 8:34 AM CDT. INDICATION: abnormality of gait and mobility TECHNIQUE: Multiplanar, multisequence MRI of the knee without contrast. Comparison is made to plain film of 12/15/2024. FINDINGS: There is normal anatomic alignment of the bones of the knee without evidence of fracture or dislocation. There is minimal medial femoral condyle bone marrow edema. The anterior and posterior cruciate ligaments are intact. No meniscal tear is seen. The medial and lateral collateral ligaments, medial and lateral patellar retinaculum, patellar tendon, and quadriceps tendon are within normal limits. No joint effusion is seen. The extra-articular soft tissues are unremarkable. IMPRESSION: Minimal medial femoral condyle bone marrow edema. No internal derangement of the knee. Electronically signed by: Edgar Ng MD 12/17/2024 10:14 AM EDT RP Dictated By: Edgar Ng Transcribed By: Transcribed On: 12/17/2024 9:34 AM Electronically signed by: Edgar Ng 12/17/2024 Thank you for referring JAVY PAGAN to [facility]. Legally authenticated by JENNIFER ZHU MD 2024-12-17 09:34:53 PATHOLOGY NARRATIVE RESULTS Information is not available [...] Effective Dates Offered Cessation Comment Updated By [id number] Smoking Status Unknown If Ever Smoked SOCIAL HISTORY - Gender Sex: Female SOCIAL HISTORY - Status : status i nformation is not available Intention in Next Year: intention information is not available SOCIAL HISTORY - Assessments Code System Description Status Date Value of Assessment Updated By Comment Assessment Information is no t available SOCIAL HISTORY - [place] Affiliation [place] information is not av ailable SOCIAL HISTORY [...] available. ENCOUNTERS ENCOUNTER INFORMATION Reason for Visit Not Specified Admission December 17, 2024 12:40:[address] [address] Discharge December 17, 2024 12:40:00 PM [facility] DISCHARGED TO HOME OR SELF CARE ENCOUNTER DIAGNOSES Notes information is not levi ilable. Code System Diagnosis Onset Date Diagnosis information is not available. ABSTRACT DIAGNOSES Code System Diagnosis Updated By Abatement Date R26.89 ICD10 OTHER ABNORMALIT IES OF GAIT AND MOBILITY [id number] on December 20, 2024 4:49:38 AM [facility] R60.0 ICD10 LOCALIZED EDEMA [id number] on O ct2024 4:49:38 AM [facility] R26.89 ICD10 OTHER ABNORMALIT IES OF GAIT AND MOBILITY [id number] on December 20, 2024 4:49:38 AM [facility] CARE TEAM Care Campus Director Role DAVID CARMONA Referring DAVID CARMONA Primary Attending DAVID CARMONA Admitting KARLA ARANGO Primary Care CARE TEAM CARE garden equipment mechanic Role on Team Location Telecom Status Start Date End Piero e Updated By CONCHITA ACOSTA MD PHY PCP normal December 16, 2024 3:55:39 PM [facility] December 17, 2024 12:40:00 PM [facility] [id number] on December 16, 2024 3:55:39 PM [facility] MATHEW Lewis PA-C Referring normal December 16, 2024 3:55:39 PM [facility] December 17, 2024 12:40:00 PM [facility] [id number] on December 16, 2024 3:55:39 PM [facility] MATHEW Lewis PA-C Attending normal December 16, 2024 3:55:39 PM [facility] December 17, 2024 12:40:00 PM [facility] [id number] on December 16, 2024 3:55:39 PM [facility] MATHEW Lewis PA-C Admitting normal December 16, 2024 3:55:39 PM [facility] December 17, 2024 12:40:00 PM [facility] [id number] on December 16, 2024 3:55:39 PM [facility]
--- OUTSIDE RECORDS SUMMARY | 2025-01-10 06:13 | XMS_ITS | Continuity of Care Document ---
Author Organization [facility] Address [address] [place] [address] Assessment No assessment recorded. Plan of Treatment Reminders Order Date Submit Date Provider Last Modified By Organization Details Last Modified Time Details Appointments None recorded. Lab CBC w/ auto diff 2024 025 [facility], [address], [place], [address], 14:59:03 CMP, serum or plasma 2024 025 [facility], [address] [place], [address], 14:59:03 vitamin D, 25-hydrox y, total, serum 2024 025 [facility], [address] [place], [address], 14:59:03 Referral None recorded. Procedures None recorded. Surgeries None recorded. Imaging None recorded. Medication Orders None recorded. Patient TargetsNo targets recorded. Patient InstructionsNo instructions recorded. Reason for Referral None Reported. Results Created Date Observation Date Name Description Value Unit Range Abnormal Flag Note LastModifiedBy Organization Detail LastModifiedTime 12/18/19 25 12/18/2024 CBC WITH DIFFE RENTI AL/PL ATELE T WBC 11.9 x10e3 /uL 3.4-10 .8 above high normal Not Available [facility] ([facility]) [address] [facility], [place], [address], 12/18/2024 08:18:24 12/18/1912/18/2024 CBC WITH DIFFE RENTI AL/PL ATELE T RBC 4.77 x10e6 /uL 3.77-5 .28 normal Not Available [facility] ([facility]) [address], [place], [address], 12/18/2024 08:18:24 12/18/19 25 12/18/2024 CBC WITH DIFFE RENTI AL/PL ATELE T hemoglobin 14.8 g/dL 11.1-1 5.9 normal Not Available [facility] ([facility]) [address] [facility], [place], [address], 12/18/2024 08:18:24 12/18/1912/18/2024 CBC WITH DIFFE RENTI AL/PL ATELE T hematocrit 46.0 % 34.0-4 6.6 normal Not Available [facility] ([facility]) [address] [facility], [place], [address], 12/18/2024 08:18:24 12/18/19 25 12/18/2024 CBC WITH DIFFE RENTI AL/PL ATELE T MCV 96 fL 79-97 normal Not Available [facility] ([facility]) [address] [facility], [place], [address], 12/18/2024 08:18:24 12/18/1912/18/2024 CBC WITH DIFFE RENTI AL/PL ATELE T MCH 31.0 pg 26.6-3 3.0 normal Not Available [facility] ([facility]) [address] [place], [address], 12/18/2024 08:18:24 12/18/19 25 12/18/2024 CBC WITH DIFFE RENTI AL/PL ATELE T MCHC 32.2 g/dL 31.5-3 5.7 normal Not Available [facility] ([facility]) [address] [facility], [place], [address], 12/18/2024 08:18:24 12/18/1912/18/2024 CBC WITH DIFFE RENTI AL/PL ATELE T RDW 12.4 % 11.7-1 5.4 Not Available [facility] ([facility]) [address] [facility], [place], [address], 12/18/2024 08:18:24 12/18/19 25 12/18/2024 CBC WITH DIFFE RENTI AL/PL ATELE T platelets 429 x10e3 /uL 150-45 0 normal Not Available [facility] ([facility]) [address] [facility], [place], [address], 12/18/2024 08:18:24 12/18/19 25 12/18/2024 CBC WITH DIFFE RENTI AL/PL ATELE T neutrophils 65 % not estab. normal Not Available [facility] ([facility]) [address] [facility], [place], [address], 12/18/2024 08:18:24 12/18/1912/18/2024 CBC WITH DIFFE RENTI AL/PL ATELE T lymphs 22 % not estab. normal Not Available [facility] ([facility]) [address] [facility], [place], [address], 12/18/2024 08:18:24 12/18/1912/18/2024 CBC WITH DIFFE RENTI AL/PL ATELE T monocytes 7 % not estab. normal Not Available [facility] ([facility]) [address] [facility], [place], [address], 12/18/2024 08:18:24 12/18/19 25 12/18/2024 CBC WITH DIFFE RENTI AL/PL ATELE T eos 5 % not estab. normal Not Available [facility] ([facility]) [address] [facility], [place], [address], 12/18/2024 08:18:24 12/18/19 25 12/18/2024 CBC WITH DIFFE RENTI AL/PL ATELE T basos 1 % not estab. normal Not Available [facility] ([facility]) [address] [facility], [place], [address], 12/18/2024 08:18:24 12/18/19 25 12/18/2024 CBC WITH DIFFE RENTI AL/PL ATELE T immature cells HEAD OF CONSERVATION Not Available [facility] ([facility]) [address] [place], [address], 12/18/2024 08:18:24 12/18/19 25 12/18/2024 CBC WITH DIFFE RENTI AL/PL ATELE T neutrophils (absolute) 7.8 x10e3 /uL 1.4-7. 0 above high normal Not Available [facility] ([facility]) [address] [place], [address], 12/18/2024 08:18:24 12/18/19 25 12/18/2024 CBC WITH DIFFE RENTI AL/PL ATELE T lymphs (absolute) 2.6 x10e3 /uL 0.7-3. 1 normal Not Available [facility] ([facility]) [address] [place], [address], 12/18/2024 08:18:24 12/18/19 25 12/18/2024 CBC WITH DIFFE RENTI AL/PL ATELE T monocytes(ab solute) 0.8 x10e3 /uL 0.1-0. 9 normal Not Available [facility] ([facility]) [address] [place], [address], 12/18/2024 08:18:24 12/18/19 25 12/18/2024 CBC WITH DIFFE RENTI AL/PL ATELE T eos (absolute) 0.6 x10e3 /uL 0.0-0. 4 above high normal Not Available [facility] ([facility]) [address] [facility], [place], [address], 12/18/2024 08:18:24 12/18/1912/18/2024 CBC WITH DIFFE RENTI AL/PL ATELE T baso (absolute) 0.1 x10e3 /uL 0.0-0. 2 normal Not Available [facility] ([facility]) [address] [facility], [place], [address], 12/18/2024 08:18:24 12/18/19 25 12/18/2024 CBC WITH DIFFE RENTI AL/PL ATELE T immature granulocytes 0 % not estab. Not Available [facility] ([facility]) [address] [facility], [place], [address], 12/18/2024 08:18:24 12/18/19 25 12/18/2024 CBC WITH DIFFE RENTI AL/PL ATELE T immature grans (abs) 0.0 x10e3 /uL 0.0-0. 1 Not Available [facility] ([facility]) [address] [facility], [place], [address], 12/18/2024 08:18:24 12/18/19 25 12/18/2024 CBC WITH DIFFE RENTI AL/PL ATELE T NRBC HEAD OF CONSERVATION Not Available [facility] ([facility]) [address] [facility], [place], [address], 12/18/2024 08:18:24 12/18/1912/18/2024 CBC WITH DIFFE RENTI AL/PL ATELE T hematology comments: HEAD OF CONSERVATION Not Available [facility] ([facility]) [address] [facility], [place], [address], 12/18/2024 08:18:24 12/18/1912/17/2024 COMP. METAB OLIC PANEL (14) interpretati on: COMMEN T GFR estim ate at the follo wing level for >or=3 month s is class ified as follo ws: GFR WITH KIDNE Y DAMAG E WITHO UT KIDNE Y DAMAG E >or=9 0 Stage 1 Nadja l 60-89 Stage 2 Decr eased GFR 30-59 Stage 3 Stage 3 15-29 Stage 4 Stage 4 <15 (or dialy sis) Stage 5 Stage 5 Estim ated GFR will over estim ate true GFR if serum creat inine is risin g as in acute renal failu re and will under estim ate true GFR if serum creat inine is decli vance as in resol ving acute renal failu re. Addit ional infor abhishek bright may be found at www.k doqi. org. Not Available [facility] ([facility]) [address] [place], [address], 12/18/2024 08:18:25 12/18/1912/18/2024 COMP. METAB OLIC PANEL (14) glucose 73 mg/dL 70-99 normal Not Available [facility] ([facility]) [address] [place], [address], 12/18/2024 08:18:25 12/18/1912/18/2024 COMP. METAB OLIC PANEL (14) BUN 9 mg/dL 6-24 normal Not Available [facility] ([facility]) [address] [place], [address], 12/18/2024 08:18:25 12/18/1912/18/2024 COMP. METAB OLIC PANEL (14) creatinine 0.71 mg/dL 0.57-1 .00 normal Not Available [facility] ([facility]) [address] [place], [address], 12/18/2024 08:18:25 12/18/1912/18/2024 COMP. METAB OLIC PANEL (14) eGFR 110 mL/mi n/1.7 3 >59 normal Not Available [facility] ([facility]) [address] [place], [address], 12/18/2024 08:18:25 12/18/1908 0112/18/2024 COMP. METAB OLIC PANEL (14) BUN/creatini ne ratio 13 9-23 normal Not Available [facility] ([facility]) [address] [place], [address], 12/18/2024 08:18:25 12/18/19 25 12/18/2024 COMP. METAB OLIC PANEL (14) sodium 140 mmol/ L 134-14 4 normal Not Available [facility] ([facility]) [address] [place], [address], 12/18/2024 08:18:25 12/18/1912/18/2024 COMP. METAB OLIC PANEL (14) potassium 4.9 mmol/ L 3.5-5. 2 normal Not Available [facility] ([facility]) [address] [facility], [place], [address], 12/18/2024 08:18:25 12/18/19 25 12/18/2024 COMP. METAB OLIC PANEL (14) chloride 103 mmol/ L 96-106 normal Not Available [facility] ([facility]) [address] [place], [address], 12/18/2024 08:18:25 12/18/19 25 12/18/2024 COMP. METAB OLIC PANEL (14) carbon dioxide, total 22 mmol/ L 20-29 normal Not Available [facility] ([facility]) [address] [place], [address], 12/18/2024 08:18:25 12/18/19 25 12/18/2024 COMP. METAB OLIC PANEL (14) calcium 9.4 mg/dL 8.7-10 .2 normal Not Available [facility] ([facility]) [address] [place], [address], 12/18/2024 08:18:25 12/18/19 25 12/18/2024 COMP. METAB OLIC PANEL (14) protein, total 7.3 g/dL 6.0-8. 5 normal Not Available [facility] ([facility]) [address] [facility], [place], [address], 12/18/2024 08:18:25 12/18/19 25 12/18/2024 COMP. METAB OLIC PANEL (14) albumin 4.3 g/dL 3.9-4. 9 normal Not Available [facility] ([facility]) [address] [facility], [place], [address], 12/18/2024 08:18:25 12/18/19 25 12/18/2024 COMP. METAB OLIC PANEL (14) globulin, total 3.0 g/dL 1.5-4. 5 Not Available [facility] ([facility]) [address] [facility], [place], [address], 12/18/2024 08:18:25 12/18/19 25 12/18/2024 COMP. METAB OLIC PANEL (14) bilirubin, total <0.2 mg/dL 0.0-1. 2 Not Available [facility] ([facility]) [address] [facility], [place], [address], 12/18/2024 08:18:25 12/18/19 25 12/18/2024 COMP. METAB OLIC PANEL (14) alkaline phosphatase 85 IU/L 41-116 normal Not Available [facility] ([facility]) [address] [facility], [place], [address], 12/18/2024 08:18:25 12/18/1912/18/2024 COMP. METAB OLIC PANEL (14) AST (SGOT) 16 IU/L 0-40 normal Not Available [facility] ([facility]) [address] [facility], [place], [address], 12/18/2024 08:18:25 12/18/19 25 12/18/2024 COMP. METAB OLIC PANEL (14) ALT (SGPT) 16 IU/L 0-32 normal Not Available [facility] ([facility]) [address] [facility], [place], [address], 12/18/2024 08:18:25 12/18/19 25 12/18/2024 VITAM IN D, 25-HY DROXY vitamin D, 25-hydroxy 24.6 NG/mL 30.0-1 00.0 below low normal Vitam in D defic iency has been defin ed by the Insti tute of Medic ine and an Endoc rine Socie ty pract ice guide line as a level of serum 25-OH vitam in D less than 20 ng/mL (1,2) . The Endoc rine Socie ty went on to furth er defin e vitam in D insuf ficie ncy as a level betwe en 21 and 29 ng/mL (2). 1. IOM (Inst itute of Medic ine). 2010. Dieta ry refer ence intak es for calci um and D. Angela almendarez [place]: The [facility] Press . 2. Nasra patel [place], Riaz osorio [place], [place] off-[place] errar [place] FRAGA, et al. Evalu ation , treat ment, and preve ntion of vitam in D defic iency : an Endoc rine Socie ty clini phyllis pract ice guide line. JCEM. 2010; 96(7) :1911 -30. Not Available [facility] ([facility]) [address] [facility], [place], [address], 12/18/2024 08:18:25 12/17/19 25 12/15/2024 XR, knee, 3 [facility] [address] [place] [address] Phone: Fax: Name: YESSENIA BRAY Exam Date: 025 : 1985 Age 38 years Gender : F Access ion: [id number] Physic eliseo: DAVID BLAKE ty: [place] [place] HSV: Outpat ient Exam: KNEE 3V RT EXAMIN ATION: XR RIGHT KNEE CLINIC AL INDICA TION: Female , 38 years old. Pain in Right knee TECHNI QUE: 3 view radiog raph of the right knee were obtain ed. [id number] . COMPAR FLORES: No prior exam. FINDIN GS: Trace osteoa rthrit is at the medial weight bearin g compar tment. No fractu re or disloc ation. No other abnorm al bone or soft tissue findin gs. IMPRES SANJUANA: Trace osteoa rthrit is at the medial weight bearin g compar tment. Electr onical ly signed by: Shar bright MD 2024 03:45 AM EDT RP Workst ation: [id number] Dictat ed By: SHAR HORNE Transc ribed By: Transc ribed On: 025 4:46 PM Electr onical ly signed by: SHAR HORNE Thank you for referr emil YESSENIA BRAY to [facility]. Legall y authen ticate d by FRANK RODRIGUEZ MD 2024-03 16:46: 17 CC'ed Logic: Orderi ng Provid er: MICHELLE HERNANDEZ CC Provid er: CONCHITA Navarro Attend ing Provid er: MICHELLE HERNANDEZ Referr ing Provid er: MICHELLE HERNANDEZ Admitt ing Provid er: MICHELLE [email or web address] [facility] [address] [place], [address], 12/16/2024 12:38:04 12/17/1912/15/2024 XR, knee, 3 view No observ ation record ed. [email or web address] [facility] [address] [place], [address], 12/16/2024 15:34:46 12/18/1912/17/2024 MRI knee witho ut cont RT [facility] [address] [place] [address] Phone: Fax: Name: YESSENIA BRAY Exam Date: : 1985 Age 38 years Gender : F Access ion: [id number] Physic eliseo: DAVID BLAKE Facili ty: [place] Facili ty HSV: Outpat ient Exam: MRI KNEE WITHOU T CONT RT MR KNEE WITHOU T IV CONTRA ST RIGHT, 8:34 AM CDT. INDICA TION: abnorm ality of gait and mobili ty TECHNI QUE: Multip lanar, multis equenc e MRI of the knee withou t contra st. Compar flores is made to plain film of . FINDIN GS: There is normal anatom ic alignm ent of the bones of the knee withou t eviden ce of fractu re or disloc ation. There is minima l medial femora l condyl e bone marrow edema. The anteri or and churn driller helper ior crucia te ligame nts are intact . No menisc al tear is seen. The medial and latera l collat eral ligame nts, medial and latera l patell ar retina culum, patell ar tendon , and miky ceps tendon are within normal limits . No joint effusi on is seen. The extra- articu lar soft tissue s are unrema rkable . IMPRES SANJUANA: Minima l medial femora l condyl e bone marrow edema. No learning and development intern al derang ement of the knee. Electr onical ly signed by: Edgar Ng MD 2024 10:14 AM EDT RP Workst ation: [id number] Dictat ed By: Edgar Ng Transc ribed By: Transc ribed On: 9:34 AM Electr onical ly signed by: Edgar Ng Thank you for referr YESSENIA Sheth to [facility]. Legall y authen ticate d by JENNIFER ZHU MD 2024-03 09:34: 53 CC'ed Logic: Orderi ng Provid er: MICHELLE HERNANDEZ CC Provid er: CONCHITA Navarro Attend ing Provid er: MICHELLE HERNANDEZ Referr ing Provid er: MICHELLE HERNANDEZ Admitt ing Provid er: MICHELLE HERNANDEZ [email or web address] [facility] [address] [place], [address], 12/20/2024 08:19:48 12/18/19 25 12/17/2024 imagi ng inter preta tion No observ ation record ed. [email or web address] [facility] [address] , [place], [address], 12/20/2024 09:00:39 Result Notes None recorded. Problems Name Problem SNOMED Code Status Onset Date Resolution Date Notes Provider Name and Address Organization Details Recorded Time Mixed anxiety and depressive disorder 064964105 Active 022 Mavis Pardini null, [place] - [facility] - [place] 2 11:52:29 Allergic rhinitis 67826358 Active 022 Mavis Pardini null, [place] - [facility] [place] 2 11:52:39 Morbid obesity 057813791 Active 024 Mavis Pardini null, [place] - [facility] [place] 4 08:28:10 Problem Notes None recorded. Procedures Surgical History Date Name Laterality Status Provider Name and Address Organization Details Recorded Time 05/21/19 24 Cholecystectomy completed Luz Capellan [place] - [facility] [place] 06/02/2023 10:40:16 03/17/18 90 ENT Surgery completed Mavis Ariedini [place] - [facility] [place] 05/15/2023 08:26:43 Imaging Results None recorded. Procedure Notes None recorded. Medical Equipment None Reported. Allergies No known drug allergies Medications Name Sig Start Date Stop Date Status Note LastModified by Organization Details LastModified Time fluoxetine 40 mg capsule TAKE 1 CAPSULE BY MOUTH ONCE DAILY (TAKE WITH 20MG CAPSULE DIRECTED) 12/15 completed Not Available Not Available Not Available promethazin e-DM 6.25 mg-15 mg/5 mL oral syrup TAKE 5ML BY MOUTH EVERY 4 HOURS 03/04 completed Not Available Not Available Not Available doxycycline hyclate 100 mg capsule TAKE 1 CAPSULE BY MOUTH TWICE DAILY FOR 10 DAYS 03/04 completed Not Available Not Available Not Available azithromyci n 250 mg tablet TAKE 2 TABLETS (500 MG) BY ORAL ROUTE ONCE DAILY FOR 1 DAY THEN 1 TABLET (250 MG) BY ORAL ROUTE ONCE DAILY FOR 4 DAYS 12/15 completed Not Available Not Available Not Available ibuprofen 800 mg tablet 1 tablet with meals as needed for pain Orally 3 times a day for 3 days 05/19 completed Not Available Not Available Not Available alprazolam 1 mg tablet TAKE 1/2 TO 1 (ONE-HALF TO ONE) TABLET BY MOUTH ONCE DAILY NEEDED FOR BREAKTHRO UGH PANIC 01/16 completed Not Available Not Available Not Available fluconazole 150 mg tablet TAKE 1 TABLET BY MOUTH TODAY AND REPEAT IN 3 DAYS DIRECTED 12/15 completed Not Available Not Available Not Available benzonatate 200 mg capsule TAKE 1 CAPSULE BY MOUTH TWICE DAILY FOR 3 DAYS NEEDED 12/15 completed Not Available Not Available Not Available fluconazole 200 mg tablet TAKE 1 TABLET BY MOUTH EVERY DAY FOR 3 DAYS 01/16 completed Not Available Not Available Not Available ondansetron HCl 4 mg tablet TAKE 1 TABLET BY MOUTH EVERY 8 HOURS NEEDED FOR NAUSEA AND VOMITING 03/04 completed Not Available Not Available Not Available prednisone 20 mg tablet TAKE 1 TABLET BY MOUTH TWICE A DAY FOR 7 DAYS 05/19 completed Not Available Not Available Not Available Pyridium 200 mg tablet TAKE 1 TABLET BY MOUTH THREE TIMES DAILY FOR 2 DAYS 01/16 completed Not Available Not Available Not Available metronidazo le 500 mg tablet TAKE 1 TABLET BY MOUTH TWICE DAILY FOR 7 DAYS 12/15 completed Not Available Not Available Not Available phentermine 37.5 mg tablet TAKE 1 TABLET BY MOUTH ONCE DAILY 12/15 completed Not Available Not Available Not Available ciprofloxac in 250 mg tablet TAKE 1 TABLET BY MOUTH EVERY 12 HOURS FOR 7 DAYS 01/16 completed Not Available Not Available Not Available ciprofloxac in 500 mg tablet TAKE 1 TABLET BY MOUTH A ONE TIME DOSE 12/15 completed Not Available Not Available Not Available tramadol 50 mg tablet Take 1 tablet twice a day by oral route as needed for 3 days. 12/25 completed Not Available Not Available Not Available amoxicillin 500 mg tablet TAKE 1 TABLET BY MOUTH EVERY 8 HOURS 01/16 completed Not Available Not Available Not Available Kenalog 40 mg/mL suspension for injection Take 1 mL by injection route. 05/19 completed Not Available Not Available Not Available oxycodone-a cetaminophe n 5 mg-325 mg tablet TAKE 1 TABLET BY MOUTH EVERY 6 HOURS NEEDED FOR SEVERE PAIN (7-10 PAIN SCALE) 06/02 completed Not Available Not Available Not Available ceftriaxone 1 gram solution for injection Take 1 g by injection route. 05/19 completed Not Available Not Available Not Available trazodone 100 mg tablet TAKE 1 TO 2 TABLETS BY MOUTH ONCE DAILY AT BEDTIME 12/15 completed Not Available Not Available Not Available benzonatate 100 mg capsule TAKE 1 CAPSULE BY MOUTH THREE TIMES DAILY FOR 4 DAYS 12/15 completed Not Available Not Available Not Available promethazin e 25 mg tablet 05/19 completed Not Available Not Available Not Available clindamycin 2 % vaginal cream INSERT 1 APPLICATO RFUL VAGINALLY EVERY NIGHT FOR 7 DAYS 05/19 completed Not Available Not Available Not Available dexamethaso ne sodium phosphate 4 mg/mL injection solution Inject 1 mL twice a day by intramusc ular route. 05/19 completed Not Available Not Available Not Available ibuprofen 600 mg tablet TAKE 1 TABLET BY MOUTH EVERY 6 HOURS NEEDED FOR MODERATE PAIN (4-6 PAIN SCALE) 06/02 completed Not Available Not Available Not Available methylpredn isolone 4 mg tablets in a dose pack FOLLOW PACKAGE DIRECTION S 12/15 completed Not Available Not Available Not Available albuterol sulfate HFA 90 mcg/actuati on aerosol inhaler INHALE 2 PUFFS BY MOUTH FOUR TIMES DAILY NEEDED active Not Available Not Available No t Available Prozac 10 mg capsule Take 1 capsule every day by oral route as directed. 03/04 completed Not Available Not Available Not Available cefdinir 300 mg capsule TAKE 1 CAPSULE BY MOUTH TWICE DAILY 12/15 completed Not Available Not Available Not Available fluoxetine 20 mg capsule TAKE 1 CAPSULE BY MOUTH ONCE DAILY (TAKE WITH 40MG CAPSULE DIRECTED) 12/15 completed Not Available Not Available Not Available fluticasone propionate 50 mcg/actuati on nasal spray,suspe nsion INSTILL 1 SPRAY INTO BOTH NOSTRILS TWICE DAILY 01/16 completed Not Available Not Available Not Available dicyclomine 10 mg capsule TAKE 1 CAPSULE BY MOUTH EVERY 6 HOURS NEEDED 01/20 completed Not Available Not Available Not Available amoxicillin 875 mg-potassiu m clavulanate 125 mg tablet TAKE 1 TABLET BY MOUTH EVERY 12 HOURS FOR 10 DAYS 05/19 completed Not Available Not Available Not Available escitalopra m 10 mg tablet 01/16 completed Not Available Not Available Not Available escitalopra m 20 mg tablet TAKE 1 TABLET BY MOUTH EVERY DAY 01/16 completed Not Available Not Available Not Available alprazolam ER 2 mg tablet,exte nded release 24 hr TAKE 1 TABLET BY MOUTH IN THE MORNING NEEDED FOR ANXIETY active Not Available Not Available No t Available tinidazole 500 mg tablet 01/24 completed Not Available Not Available Not Available Cymbalta 20 mg capsule,del ayed release Take 1 capsule every day by oral route. 01/16 completed Not Available Not Available Not Available amoxicillin completed Not Available Not Available Not Available desvenlafax ine succinate ER 25 mg tablet,exte nded release 24 hr TAKE 1 TABLET BY MOUTH ONCE DAILY 12/15 completed Not Available Not Available Not Available Vitals None Recorded Social History Question Answer Notes LastModified by Organizat ion Details LastModified Time Tobacco Smoking Status Former Smoker Mavis Sargentzacarias null, [place] 02/11/2023 12:01:06 Do You Have An Advance Directive? No Information n ot available 02/11/2023 If You Are , What Was Your Level Of Alcohol Consumption Prior To ? None Information not available 12/15/2024 Do You Wear A Helmet When Biking? Yes Information not available 12/15/2024 Are You Blind Or Do You Have Difficulty Seeing? No Information n ot available 02/11/2023 What Is Your Level Of Caffeine Consumption? Moderate Information not available 03/04/2023 In The 14 Days Before Symptom Onset, Have You Had Close Contact With A Laboratory-confirm ed COVID-19 While That Case Was Ill? No [email or web address] Information n ot available 12/15/2024 In The 14 Days Before Symptom Onset, Have You Had Close Contact With A Person Who Is Under Investigation For COVID-19 While That Person Was Ill? No [email or web address] Information not available 12/15/2024 Have You Been To An Area Known To Be High Risk For COVID-19? No [email or web address] Information not available 12/15/2024 Are You Deaf Or Do You Have Serious Difficulty Hearing? No [email or web address] Information not available 12/15/2024 What Type Of Diet Are You Following? REGULAR [email or web address] Information n ot available 12/15/2024 Have You Processed Blood Or Body Fluids From An Ebola Virus Disease Patient Without Appropriate PPE? No [email or web address] Information not available 12/15/2024 Do You Reside In Or Have You Traveled To An Area Where Ebola Virus Transmission Is Active? No [email or web address] Information not available 12/15/2024 Have There Been Any Changes To Your Family Or Social Situation? No [email or web address] Information no t available 12/15/2024 What Is The Fluoride Status Of Your Home? Unknown [email or web address] Information not available 12/15/2024 When Did You Quit Smoking? 1-5yearssince lastcigarette Information not available 03/04/2023 Are There Any Guns Present In Your Home? No [email or web address] Information not available 12/15/2024 Have You Recently Or Are You Planning To Travel To An Area With Zika Virus? No Information not available 12/15/2024 Do You Use Insect Repellent Routinely? Yes [email or web address] Information not available 12/15/2024 Do You Feel Safe At Home? Yes [email or web address] Information not available 12/15/2024 Do You Have A Medical Power Of Engineering Psychologist? No [email or web address] Information not available 12/15/2024 What Was The Date Of Your Most Recent Tobacco Screening? 12/15/2024 [email or web address] Information not available 12/15/2024 Do You Have Any Pets? Yes [email or web address] Information not available 12/15/2024 Do You Use Your Seat Belt Or Car Seat Routinely? Yes [email or web address] Information not available 12/15/2024 Do You Have Smoke And Carbon Monoxide Detectors In Your Home? Yes [email or web address] Information not available 12/15/2024 Are You Passively Exposed To Smoke? No Information no t available 02/11/2023 How Much Tobacco Do You Smoke? No Information not available 02/11/2023 Do You Use Sunscreen Routinely? Yes [email or web address] Information not available 12/15/2024 Has Tobacco Cessation Counseling Been Provided? No Information not available 03/04/2023 Do You Have Difficulty Walking Or Climbing Stairs? No [email or web address] Information not available 12/15/2024 Are You Currently In School? No [email or web address] Information not available 12/15/2024 Sex: Female Functional Status Question Answer Note LastModified by Organizat ion Details LastModified Time Do you use any illicit or recreational drugs? No Information not available 01/24/2022 Do you or have you ever used any other forms of tobacco or nicotine? Yes [email or web address] Information not available 05/20/2023 What is your level of alcohol consumption? None Information not available 01/24/2022 Do you or have you ever used smokeless tobacco? Never used smokeless tobacco Information not available 05/15/2023 Are you currently employed? Yes [email or web address] Information not available 12/15/2024 Do you have transportation difficulties? No [email or web address] Information not available 12/15/2024 Are you able to walk independently without assistance or assistive devices? YESWOREST [email or web address] Information not available 12/15/2024 Do you have difficulty doing errands alone? No [email or web address] Information not available 12/15/2024 Are you able to care for yourself independently? Yes [email or web address] Information not available 12/15/2024 Do you have difficulty dressing, bathing, grooming, or toileting? No Information not available 12/15/2024 Do you or have you ever used e-cigarettes or vape? Current user of electronic cigarettes [email or web address] Information not available 05/20/2023 What is your exercise level? Occasional Information not available 02/11/2023 Mental Status Question Answer Note LastModified by Organizat ion Details LastModified Time Do you feel stressed (tense, restless, nervous, or anxious, or unable to sleep at night)? [id number] Information not available 02/11/2023 Do you have difficulty concentrating, remembering or making decisions? No Information no t available 12/15/2024 Family History Relationship Description Onset Age of this Age Resolved Age Notes LastModified by Organization Details LastModified Time Father No current problems or disability [email or web address] Not available 01/24 11:52:50 Mother No current problems or disability [email or web address] Not available 01/24 11:52:50 Medical History Condition Response Anxiety Disorder Y Obesity Y Depression Y High Cholesterol Y Bronchitis Y Gynecological History Statement/Question Response Menses Monthly N Abnormal Pap N Current Control Method IUD Sexually Active? Y Obstetrics History GPAL:G 0 P 0 0 0 0 Past Encounters Encounter ID Performer Location Encounter Start Date Encounter Closed Date Diagnosis/Indication Diagnosis SNOMED-CT Code Diagnosis ICD10 Code Diagnosis IMO Codes Diagnosis Note [id number] FRANCISCO HERNDON [facility] [address] [address] 12/15/2024 15:23:00 12/16/2024 07:47:57 Pain of right knee joint 7294770266 53501 M25.561 927743 anterior right knee painX-ray order sentPhysic al therapy referral sentInstru cted patient to rest, ice, and elevate the area Unable to weight-bear on right leg [id number] R26.89 [id number] exam concerning for tear of ACLLimited mobility requiring use of wheelchair Inability of patient to tolerate or bear weight on right lower extremityM RI order sent [id number] GAVIN MARSHALL NP [facility] [address] [address] 12/17/2024 12:07:11 12/17/2024 12:17:49 Edema of bone marrow [id number] 107 R93.7 [id number] blood drawn in the right AC by Mavis Skelton CMA, patient tolerated well. Health Concerns Section Related Observation LastModified by Organization Detai ls LastModified Time None Recorded Concern Status LastModified by Organization Details LastModified Time None Recorded Payers Encounter Date Sequence Insurance Name Policy Number Policy Davis Covered Member ID Davis Member ID Guarantor Name 12/17/2024 1 [employer] ([facility]) [id number] Shar Moya [id number] Yessenia Bray OBAnna Episode No OBEpisode recorded.
--- OUTSIDE RECORDS SUMMARY | 2025-01-10 06:13 | XMS_ITS | Data Portability ---
Author Organization [facility] Address [address] [place] [address] Assessment Encounter Date Assessment Date Assessment LastModified by Organization Details LastModified Time 06/11/2022 06/11/2022 Patient presents with symptoms of UTI. Results of dipstick were for UTI. Advised to drink clear fluids, Tylenol for pain and take prescribed medications as instructed. Patient encouraged to follow up within 1 week if not improving. [email or web address] Not available 06/11/2022 11:17:40 Plan of Treatment Reminders Order Date Submit Date Provider Last Modified By Organization Details Last Modified Time Details Appointments None record ed. Lab rapid strep group A, throat 2022 023 [email or web address] [facility], [address] [place] [address], [address], 3 11:11:38 rapid flu (A+B) 2022 023 [email or web address] [facility], [address] [place] [address], [address], 3 11:11:40 rapid SARS CoV 2 Ag, QL, IA, upper respir atory specim en 2022 023 [email or web address] [facility], [address] [place] [address], [address], 3 11:11:41 rapid SARS CoV 2 Ag, QL, IA, upper respir atory specim en 2022 023 [email or web address] [facility], [address] [facility], [place], [address], 3 09:43:08 rapid strep group A, throat [email or web address] [place] [address], [address] [facility], [place], [address], 3 09:43:07 rapid flu (A+B) [email or web address] [place] [address], [address] [facility], [place], [address], 3 09:43:07 urinal ysis, dipsti ck [address], [address] [place] [address], [address], 3 11:54:09 rapid strep group A, throat [address], [address] [place] [address], [address], 2 18:16:44 Referral None record ed. Procedures None record ed. Surgeries None record ed. Imaging None record ed. Medication Orders Nicki tin 875 mg-125 mg tablet 2022 023 [place] [facility]23901, [address], [place], [place], [id number], 3 11:11:43 promet hazine -DM 6.25 mg-15 mg/5 mL oral syrup 2022 023 [facility] #60602, [address] [place], [place], [id number], 3 11:11:44 Augmen tin 875 mg-125 mg tablet 2022 023 [facility] #83465, [address] [place], [id number], 3 09:43:16 Difluc an 200 mg tablet 2022 023 [facility] #08347, [address], [place], [id number], 3 09:43:48 Cipro 250 mg tablet 2022 023 [facility] #15436, [address], [place], [id number], 3 08:26:46 Pyridi um 200 mg tablet 2022 023 [facility] #28500, [address] [place], [id number], 3 08:27:14 predni sone 10 mg tablet 2021 022 [facility] #90258, [address] [place] [place] [place] [id number], 2 09:50:20 Difluc an 200 mg tablet 2021 022 [email or web address] [facility] #62358, [address] [place], [id number], 2 18:24:38 Patient TargetsNo targets recorded. Patient Instructions Encounter Date Encounter Id Patient Instructions Last Modified By Organization Details Last Modified Time 02/28/2023 [id number] Take medication as prescribed increase fluids and rest. replace toothbrush after taking antibiotics for 48 hours. Take tylenol/motrin as needed for fever/pain. Gargle with salt water/use throat lozenges for sore throat relief. if symptoms persist or worsen call the clinic. Patient instructed to follow up with PCP on Friday if symptoms have not improved or if symptoms have worsened. Not available 02/28/2023 11:10:43 Plan of care discussed with patient who voiced understanding. Not available 02/28/2023 11:10:59 Reason for Referral None Reported. Results Created Date Observation Date Name Description Value Unit Range Abnormal Flag Note LastModifiedBy Organization Detail LastModifiedTime 01/24/20 22 01/23/2022 rapid strep group A, throa t Strep negati ve Not Available [facility] [address] [place], [address], 01/23/2022 10:20:42 06/12/19 23 06/11/2022 urina lysis , dipst ick Leukocytes Modera te Not Available [facility] [address] [place], [address], 06/11/2022 11:24:45 06/12/19 23 06/11/2022 urina lysis , dipst ick Nitrite positi ve Not Available [facility] [address] [place] [address], [address], 06/11/2022 11:24:45 06/12/19 23 06/11/2022 urina lysis , dipst ick Urobilinogen .2 Not Available [facility] [address] [place], [address], 06/11/2022 11:24:45 06/12/19 23 06/11/2022 urina lysis , dipst ick Protein Negati ve Not Available [facility] [address] [place], [address], 06/11/2022 11:24:45 06/12/19 23 06/11/2022 urina lysis , dipst ick pH 5.5 Not Available [facility] [address] [place] [address], [address], 06/11/2022 11:24:45 06/12/19 23 06/11/2022 urina lysis , dipst ick Blood Large Not Available [facility] [address] [place] [address], [address], 06/11/2022 11:24:45 06/12/19 23 06/11/2022 urina lysis , dipst ick Specific [place] 1.010 Not Available [facility] [address] [place] [address], [address], 06/11/2022 11:24:45 06/12/19 23 06/11/2022 urina lysis , dipst ick Ketone Negati ve Not Available [facility] [address] [place] [address], [address], 06/11/2022 11:24:45 06/12/19 23 06/11/2022 urina lysis , dipst ick Bilirubin Negati ve Not Available [facility] [address] [place] [address], [address], 06/11/2022 11:24:45 06/12/19 23 06/11/2022 urina lysis , dipst ick Glucose Negati ve Not Available [facility] [address] [place] [address], [address], 06/11/2022 11:24:45 06/12/19 23 06/11/2022 urina lysis , dipst ick Appearance Cloudy Not Available [facility] [address] [place] [address], [address], 06/11/2022 11:24:45 06/12/19 23 06/11/2022 urina lysis , dipst ick Color Pale Yellow Not Available [facility] [address] [place] [address], [address], 06/11/2022 11:24:45 07/09/19 23 07/08/2022 rapid flu (A+B) Flu A negati ve Not Available [facility] [address] [facility], [place], [address], 07/08/2022 08:28:25 07/09/19 23 07/08/2022 rapid flu (A+B) Flu B negati ve Not Available [facility] [address] [facility], [place], [address], 07/08/2022 08:28:25 07/09/19 23 07/08/2022 rapid SARS CoV 2 Ag, QL, IA, upper respi rator y speci men SARS CoV Ag negati ve Not Available [facility] [address] [facility], [place], [address], 07/08/2022 08:28:21 07/09/19 23 07/08/2022 rapid strep group A, throa t Strep positi ve Not Available [facility] [address] [facility], [place], [address], 07/08/2022 08:28:23 02/29/20 23 02/28/2023 rapid SARS CoV 2 Ag, QL, IA, upper respi rator y speci men SARS CoV Ag negati ve Not Available [facility] [place] [facility] [address] [place] [address], [address], 02/28/2023 10:26:44 02/29/20 23 02/28/2023 rapid flu (A+B) Flu A negati ve Not Available [facility] [place] [facility] [address] [place] [address], [address], 02/28/2023 10:26:34 02/29/20 23 02/28/2023 rapid flu (A+B) Flu B negati ve Not Available [facility] [address] [place], [address], 02/28/2023 10:26:34 02/29/20 23 02/28/2023 rapid strep group A, throa t Strep positi ve Not Available [facility] on [facility] [address] [place], [address], 02/28/2023 10:26:21 Result Notes None recorded. Problems Name Problem SNOMED Code Status Onset Date Resolution Date Notes Provider Name and Address Organization Details Recorded Time Migraine without aura 09037994 Active 022 Problem Code: G43.009; Problem Code Type: ICD-10; Not Available [facility] 22:32:13 Problem Notes None recorded. Medical Equipment None Reported. Allergies No known drug allergies Medications Name Sig Start Date Stop Date Status Note LastModified by Organization Details LastModified Time promethazin e-DM 6.25 mg-15 mg/5 mL oral syrup TAKE 5 ML BY MOUTH EVERY 4 HOURS NEEDED FOR COUGH active Not Available Not Available No t Available venlafaxine ER 37.5 mg capsule,ext ended release 24 hr TAKE 1 CAPSULE BY MOUTH EVERY DAY FOR 7 DAYS. THEN INCREASE TO 75 MG EVERY DAY 01/04 completed Not Available Not Available Not Available prednisone 10 mg tablet 60 mg po qd day 1 then decrease by 10 mg po qd 01/23 completed Not Available Not Available Not Available venlafaxine ER 75 mg capsule,ext ended release 24 hr TAKE 1 CAPSULE BY MOUTH EVERY DAY 02/28 completed Not Available Not Available Not Available doxycycline hyclate 100 mg capsule active Not Available Not Available N ot Available azithromyci n 250 mg tablet TAKE 2 TABLETS (500 MG) BY ORAL ROUTE ONCE DAILY FOR 1 DAY THEN 1 TABLET (250 MG) BY ORAL ROUTE ONCE DAILY FOR 4 DAYS 01/14 completed Not Available Not Available Not Available alprazolam 1 mg tablet TAKE 1/2 TO 1 (ONE-HALF TO ONE) TABLET BY MOUTH ONCE DAILY NEEDED FOR BREAKTHRO UGH PANIC active Not Available Not Available No t Available fluconazole 150 mg tablet active Not Available Not Available Not Available Xanax 2 mg tablet take 1 tablet (2 mg) by oral route PRN 01/04 completed Not Available Not Available Not Available fluconazole 200 mg tablet TAKE 1 TABLET BY MOUTH EVERY DAY FOR 3 DAYS active Not Available Not Available No t Available prednisone 20 mg tablet TAKE 1 TABLET BY MOUTH DAILY FOR 4 DAYS active Not Available Not Available No t Available Pyridium 200 mg tablet TAKE 1 TABLET BY MOUTH THREE TIMES DAILY FOR 2 DAYS 07/08 completed Not Available Not Available Not Available metronidazo le 500 mg tablet active Not Available Not Available Not Available ciprofloxac in 250 mg tablet TAKE 1 TABLET BY MOUTH EVERY 12 HOURS FOR 7 DAYS 07/08 completed Not Available Not Available Not Available amoxicillin 500 mg tablet 06/11 completed Not Available Not Available Not Available prednisone 10 mg tablets in a dose pack FOLLOW PACKAGE DIRECTION S 01/23 completed Not Available Not Available Not Available benzonatate 100 mg capsule 12/18 completed Not Available Not Available Not Available methylpredn isolone 4 mg tablets in a dose pack active Not Available Not Available Not Available paroxetine 40 mg tablet TAKE 1 TABLET BY MOUTH EVERYDAY - DO NOT FLL BEFORE Jan.24 completed Not Available Not Available Not Available cefdinir 300 mg capsule TAKE 1 CAPSULE BY MOUTH EVERY 12 HOURS FOR 7 DAYS active Not Available Not Available No t Available fluticasone propionate 50 mcg/actuati on nasal spray,suspe nsion active Not Available Not Available Not Available dicyclomine 10 mg capsule active Not Available Not Available Not Available amoxicillin 875 mg-potassiu m clavulanate 125 mg tablet TAKE 1 TABLET BY MOUTH EVERY 12 HOURS DIRECTED FOR 10 DAYS active Not Available Not Available No t Available Ventolin HFA 90 mcg/actuati on aerosol inhaler active Not Available Not Available Not Available escitalopra m 10 mg tablet 07/08 completed Not Available Not Available Not Available escitalopra m 20 mg tablet TAKE 1 TABLET BY MOUTH EVERY DAY 02/28 completed Not Available Not Available Not Available alprazolam ER 2 mg tablet,exte nded release 24 hr TAKE 1 TABLET BY MOUTH EVERY DAY NEEDED FOR PANIC 02/28 completed Not Available Not Available Not Available tinidazole 500 mg tablet 12/18 completed Not Available Not Available Not Available duloxetine 20 mg capsule,del ayed release TAKE 1 CAPSULE BY MOUTH EVERY DAY 02/28 completed Not Available Not Available Not Available Ubrelvy 100 mg tablet take 1 tablet (100 mg) by oral route once at onset of headache 12/18 completed Not Available Not Available Not Available Vitals Date Recorded Body height Body mass index (BMI) Body weight Body temperature Heart rate Oxygen saturation Oxygen saturation in Arterial blood by Pulse oximetry Systolic And Diastolic Systolic And Diastolic Systolic And Diastolic Provider Name and Address Organization Details Last Updated DateTime 3 166.37 cm 49 kg/m2 304247. 12 g 98.3 [degF] 86 /min 99 % 99 % 150/104 mm[Hg] 130/84 mm[Hg] 120/60 mm[Hg] [employer] 3 11:23:54 Date Recorded Body height Body mass index (BMI) Body weight Body temperature Heart rate Oxygen saturation Oxygen saturation in Arterial blood by Pulse oximetry Systolic And Diastolic Provider Name and Address Organization Details Last Updated DateTime 3 166.37 cm 49.5 kg/m2 891986. 9 g 99.9 [degF] 103 /min 98 % 98 % 98/62 mm[Hg] [employer]. 3 08:26:39 Date Recorded Body height Body mass index (BMI) Body weight Body temperature Heart rate Oxygen saturation Oxygen saturation in Arterial blood by Pulse oximetry Provider Name and Address Organization Details Last Updated DateTime 2 166.37 cm 49.2 kg/m2 302287. 71 g 99.5 [degF] 100 /min 98 % 98 % Otilia Hernández [employer]. 2 13:33:09 Date Recorded Body height Body mass index (BMI) Body weight Body temperature Heart rate Provider Name and Address Organization Details Last Updated DateTime 01/23/2022 166.37 cm 49.2 kg/m2 587350.7 1 g 98.4 [degF] 96 /min Amber London [employer]. 2 09:51:41 Date Recorded Body height Body mass index (BMI) Body weight Body temperature Heart rate Oxygen saturation Oxygen saturation in Arterial blood by Pulse oximetry Provider Name and Address Organization Details Last Updated DateTime 3 166.37 cm 48.7 kg/m2 292399. 93 g 101.8 [degF] 112 /min 93 % 93 % Flori Wells, [employer] [address] [place], [address], [facility] [employer]. 3 10:22:26 Social History Question Answer Notes LastModified by Organizat ion Details LastModified Time Tobacco Smoking Status Former Smoker SocialHist oryQuestio n: 'Tobacco/A lcohol/Sup plements'; SocialHist oryRespons e: 'Current Everyday Smoker'; JOAQUINA michaud, [employer]. 12/18/2021 09:07:42 Do You Have An Advance Directive? No Information not available 01/04/2022 Is Your Home Air Conditioned? Yes Information not available 01/04/2022 Do You Wear A Helmet When Biking? No Information not available 01/04/2022 Are You Blind Or Do You Have Difficulty Seeing? No Information not available 12/18/2021 What Is Your Level Of Caffeine Consumption? Occasional Information not available 12/18/2021 Are You A Caregiver? No Information not available 01/04/2022 What Type Of Warp Spinner Do You Use? None Information not available 01/04/2022 In The 14 Days Before Symptom Onset, Have You Had Close Contact With A Laboratory-confi rmed COVID-19 While That Case Was Ill? No Information not available 01/04/2022 In The 14 Days Before Symptom Onset, Have You Had Close Contact With A Person Who Is Under Investigation For COVID-19 While That Person Was Ill? No Information not available 01/04/2022 Have You Been To An Area Known To Be High Risk For COVID-19? No Information not available 01/04/2022 Are You Deaf Or Do You Have Serious Difficulty Hearing? No Information not available 12/18/2021 What Type Of Diet Are You Following? REGULAR Information not available 01/04/2022 Who Is Your Employer? [employer] Information not available 12/18/2021 Have There Been Any Changes To Your Family Or Social Situation? No Information not available 01/04/2022 When Did You Quit Smoking? 1-5yearssince lastcinohelia Information not available 12/18/2021 Are There Any Guns Present In Your Home? Yes Information not available 01/04/2022 Which Of Your Hands Is Dominant? Right Information not available 01/04/2022 Do You Have A Medical Power Of Ed Teacher? No Information not available 01/04/2022 What Was The Date Of Your Most Recent Tobacco Screening? 07/08/2022 Information not available 07/08/2022 Do You Have Any Pets? Yes Information not available 01/04/2022 What Is Your Relationship Status? Unknown Information not available 01/04/2022 Do You Use Your Seat Belt Or Car Seat Routinely? Yes Information not available 01/04/2022 Do You Have Smoke And Carbon Monoxide Detectors In Your Home? Yes Information not available 01/04/2022 Are You Passively Exposed To Smoke? No Information not available 01/04/2022 Are There Any Smokers In Your House? No Information not available 12/18/2021 Do You Participate In Social Media? Yes Information not available 01/04/2022 Do You Use Sunscreen Routinely? No Information not available 01/04/2022 Has Tobacco Cessation Counseling Been Provided? No Information not available 01/04/2022 Have You Recently Traveled Abroad? No Information not available 01/04/2022 Do You Have Difficulty Walking Or Climbing Stairs? No Information not available 12/18/2021 Are You Currently In School? No Information not available 12/18/2021 Do You Have Any Dietary Restrictions? No Information not available 01/04/2022 Sex: Female Functional Status Question Answer Note LastModified by Organizat ion Details LastModified Time Do you use any illicit or recreational drugs? No Information not available 01/04/2022 Do you or have you ever used any other forms of tobacco or nicotine? No Information not available 01/04/2022 What is your level of alcohol consumption? None Information not available 12/18/2021 Are you currently employed? Yes Information not available 12/18/2021 Do you have transportation difficulties? No Information not available 12/18/2021 Are you able to walk independently without assistance or assistive devices? YESWOREST Information not available 12/18/2021 Do you have difficulty doing errands alone? No Information not available 12/18/2021 Are you able to care for yourself independently? Yes Information not available 12/18/2021 What is your occupation? Teacher Information not available 12/18/2021 Do you have difficulty dressing, bathing, grooming, or toileting? No Information not available 12/18/2021 What is your exercise level? None Information not available 01/04/2022 Mental Status Question Answer Note LastModified by Organizat ion Details LastModified Time Do you feel stressed (tense, restless, nervous, or anxious, or unable to sleep at night)? [id number] Information not available 12/18/2021 Do you have difficulty concentrating, remembering or making decisions? No Information n ot available 12/18/2021 Family History Relationship Description Onset Age of this Age Resolved Age Notes LastModified by Organization Details LastModified Time Father No current problems or disability [email or web address] ing Not available 12/18/2021 09:03:29 Mother No current problems or disability [email or web address] ing Not available 12/18/2021 09:03:29 Medical History Condition Response Other Y Headaches Y Gynecological HistoryNo gynecological history recorded. Obstetrics History GPAL:G 0 P 0 0 0 0 Past Encounters Encounter ID Performer Location Encounter Start Date Encounter Closed Date Diagnosis/Indication Diagnosis SNOMED-CT Code Diagnosis ICD10 Code Diagnosis IMO Codes Diagnosis Note [id number] Evelina Guerra PA-C [place] [id number] 3 12/18/2021 08:52:26 12/18/2021 10:32:59 Acute upper respiratory infection 84079447 J06.9 rest, increase fluids, humidifier , Tylenol for fever or headache, and take medication s as prescribed . Continue Mucinex. Morbid obesity 280283128 E66.01 healthy diet of low carbohydra laurie and fats along with regular daily aerobic exercise Ex-smoker 3014565 Z87.89 1 continue nonsmoking . [id number] Evelina Guerra PA-C [employer] [address] [place] [address] 01/04/2022 09:56:14 01/10/2022 10:47:40 Acute bronchitis 52399595 J20.9 Body mass index 40+ - severely obese 454154994 Z68.42 patient is on formal diet and exercise program for weight loss. Tobacco non-user [id number] 001 24206 Z13.89 [id number] Evelina Guerra PA-C [employer] [facility] [address] [place], [place] [id number] 3 01/14/2022 13:28:44 01/17/2022 20:33:21 Acute bronchitis 72331401 J20.9 Rest, increase fluids, Tylenol for fever or headache, humidifier . Complete medication s as prescribed . [id number] Evelina [facility]erra [facility]-C [facility] [address] [place], [place] [id number] 3 01/23/2022 09:48:52 01/25/2022 08:39:14 Acute viral tonsillitis 866844376 J03.90 Patient was instructed to gargle frequently with warm salt water. Raising the head of the bed, lozenges, and saline nasal spray were also recommende d. Patient may take ibuprofen or acetaminop hen as needed for pain control. If the issue does not improve in 24-48 hours, patient should return to the clinic for follow-up. [id number] Evelina Guerra PA-C [employer] [facility] [facility] [address] 3 06/11/2022 11:08:49 06/12/2022 08:47:06 Acute urinary tract infection 807702525 N39.0 Increase fluids avoiding soda and caffeine. Tylenol or Motrin for pain. Antibiotic and Pyridium as prescribed . Expect improvemen t in 2-3 days. If pain escalates or new symptoms occur need to seek further care. Body mass index 40+ - severely obese 305065164 Z68.42 patient is on formal diet and exercise program for weight loss. Tobacco non-user [id number] 001 22946 Z13.89 [id number] Evelina Guerra PA-C [facility] [address] [place] [address] 07/08/2022 08:16:36 07/09/2022 08:57:59 Acute tonsillitis caused by Streptococcus [id number] 2110182 J03.00 rest, increase fluids, throat lozenges, and Tylenol or Motrin for fever or pain. Antibiotic s as prescribed . F/u in 5-7 days if new or worsening symptoms occur.. Work excuse for today and tomorrow. Body mass index 40+ - severely obese 725413073 Z68.42 patient is on formal diet and exercise program for weight loss. Tobacco non-user [id number] 001 01785 Z13.89 [id number] Evelina Guerra PA-C [address] [address] 02/28/2023 10:21:00 03/04/2023 10:00:32 Streptococcal sore throat 39683199 J02.0 Influenza- like illness 19632181 B34.9 Body mass index 40+ - severely obese 236677672 Z68.42 Health Concerns Section Related Observation LastModified by Organization Detai ls LastModified Time None Recorded Concern Status LastModified by Organization Details LastModified Time None Recorded Advance Directives Directive N: Payers Insurance Date Sequence Insurance Name Policy Number Policy Davis Covered Member ID Davis Member ID Guarantor Name 12/15/2023 1 [facility] [place]PLAC[place] Ida Bray [id number] Ida Bray 12/26/2021 1 [facility] Ida Bray [id number] Ida Bray Notes Date Note Type Note Provider Name and Address Organization Details Recorded Time 01/15/20 22 text/htm l Sinusitis/AllergyReported by PatientHPIFor quality, patient reportscongestedandcolored phlegm. For context, patient reportsrecent upper respiratory infectionandrecent sick contacts. For associated symptoms, patient reportscough non productive,facial pain bilaterally,sinus pain forehead, andsore throatbut reportsno nausea or vomitingandno headache. For risk factors, patient reportshistory of smoking. For location, patient reportsmaxillary. For severity, patient reportsmild. For onset/timing, patient reportsgradual onset,initially started 5days ago, andprogressively worse over last 2days. For alleviating factors, patient reportssaline nasal rinses,nasal steroid flonase, andantihistamine __. For aggravating factors, patient reportscold weather. CoughReported by Patient Evelina Guerra PA-C [address] [place] [address], [phone], [employer]. 01/27/2022 18:27:14 01/24/20 22 text/htm l Pediatric Sore ThroatReported by PatientHPIFor quality, patient reportspainful. For severity, patient reportsmild. For context, patient reportsothers with similar symptomsandexposure to strep. For associated symptoms, patient reportsheadachebut reportsno cough,no fever,no nasal discharge,no nausea,no vomiting,no abdominal pain,no diarrhea, andno rash. For location, patient reportsbilateral. For duration, patient reportsstarted ___ day(s) ago(started this morning). For alleviating factors, patient reportsthroat lozenges. Sore ThroatReported by Patient Evelina Guerra PA-C [address] [place] [address], [phone], [employer], [employer]. 01/23/2022 18:17:12 06/12/19 23 text/htm l Lower Urinary Tract Symptoms (LUTS)Reported by PatientHPIFor associated symptoms, patient reportsabdominal pain,nausea,post void dribbling,empties poorly,urgency,frequency,dysur ia, andsuprapubic painbut reportsno flank pain,no low back pain,no chills,no fever,no constipation,no diarrhea,no vomiting,no gross hematuria, andno abnormal vaginal discharge. For location, patient reportsbladderandright. For quality, patient reportsachingandpressure. For severity, patient reportsmild. For onset/timing, patient reportsspontaneous. For duration, patient reportsacute. For context, patient reportsdenies excessive caffeine intake,no dyspareunia, anddenies new medication treatment. For alleviating factors, (nothing makes better). Evelina Guerra PA-C [address] [place] [address], [phone], [employer]. 06/11/2022 11:54:42 07/09/19 23 text/htm l Pediatric Sore ThroatReported by PatientHPIFor quality, patient reportspainful. For severity, patient reportsmoderate. For context, patient reportsothers with similar symptomsandexposure to strep. For associated symptoms, patient reportsswollen glands,headache,fever,fatigue, andnasal congestionbut reportsno cough,no vomiting,no abdominal pain,no diarrhea, andno rash. For location, patient reportsbilateral. For duration, patient reportsstarted 2 day(s) ago. For alleviating factors, patient reportsthroat lozengesandnsaids(nyquil which helped temporarily). Sore ThroatReported by Patient Evelina Guerra PA-C [address] [place] [address], [phone], [employer]. 07/08/2022 09:44:18 02/29/20 23 text/htm l Sore ThroatReported by PatientHPIFor severity, patient reportsmildandmoderate. For associated symptoms, patient reportsfeverandcough. For location, patient reportsbilateral. For onset/timing, patient reportsdate of onset 2.ROS as noted in the HPI consent for treatment obtained Flori Wells APRN [address] [place] [address], [phone], [employer]. 02/28/2023 11:12:31 OBGyn Episode No OBEpisode recorded.
--- OUTSIDE RECORDS SUMMARY | 2025-01-10 06:13 | XMS_ITS | Clinical Summary ---
[facility] Address [address] [place] [address] Care Team Providers Care Supervisor [employer] Name Role Phone Ervin Guadarrama MD Primary Care Provider [phone] Allergies No known active allergies Medications methocarbamol [...] 12/30/2002 PAP SMEAR 12/30/2004 ANNUAL PHYSICAL 03/24/2018 MAMMOGRAM 2023 08/21/2017, 02/13/2017, 07/31/2016 INFLUENZA VACCINE 10/15/2024 HEPATITIS C SCREENING Completed 04/12/2021 Pneumococcal Vaccine [...] with benign intramammary lymph nodes are stable. Ramiro Aceves MD IMG MAMMOGRAPHY ORDERABLE S Final Result from Last 3 Months or Most Recently Relevant to Health Maintenance Insurance [employer] Care Teams Supervisor [employer] Relationship Specialty Start Date End Date Ervin Guadarrama MD [address] [place] [address] PCP - General Family Medicine 11/03/23
--- OUTSIDE RECORDS SUMMARY | 2025-01-10 06:14 | XMS_ITS | Data Portability ---
Author Organization [facility] & [facility] [place] ADMIN Address [address] [place] [id number] Assessment No assessment recorded. Plan of Treatment Reminders Order Date Submit Date Provider Last Modified By Organization Details Last Modified Time Details Appointments None recorded. Lab CBC w/ auto diff 2024 025 [facility] [place] [place] [facility], [address], [place], [address], 14:59:03 CMP, serum or plasma 2024 025 [facility] [place] [place] [facility], [address], [place], [address], 5 14:59:03 vitamin D, 25-hydrox y, total, serum 2024 025 [facility] [place] [place] [facility], [address], [place], [address], 14:59:03 urinalysi s, dipstick 2024 025 [facility], [address] [place], [address], 5 12:15:50 culture, urine 2024 025 [facility] (Laboratory), [address] [place] [address] [place], [address], 5 07:36:27 Referral None recorded. Procedures None recorded. Surgeries None recorded. Imaging MRI, knee, w/o contrast 2024 025 [email or web address] [facility] (Scheduling), [address] [place], [address], 07:53:16 XR, knee, 3 view 2024 025 [email or web address] [id number] [facility] (Scheduling), [address] [place], [address], 5 11:08:18 Medication Orders None recorded. Patient TargetsNo targets recorded. Patient InstructionsNo instructions recorded. Reason for Referral None Reported. Results Created Date Observation Date Name Description Value Unit Range Abnormal Flag Note LastModifiedBy Organization Detail LastModifiedTime 05/21/1905/21/2023 URINE PREGN BIN TEST urine test NEGATI VE negati ve Not Available ([facility]) [address] [place], [address], 05/21/2023 08:52:47 05/21/19 24 05/21/2023 URINE PREGN BIN TEST HCG urine lot # [id number] Not Available [facility] ([facility]) [address] [place], [address], 05/21/2023 08:52:47 05/21/19 24 05/21/2023 URINE PREGN BIN TEST HCG urine exp date Not Available ([facility]) [address] [place], [address], 05/21/2023 08:52:47 05/21/19 24 05/21/2023 URINE PREGN BIN TEST HCG urine int control pos OK positi ve Not Available ([facility]) [address] [place], [address], 05/21/2023 08:52:47 05/21/19 24 05/21/2023 CBC AUTO W DIFF WBC 11.0 K/uL 4.0-10 .5 high Not Available ([facility]) [address], [place], [address], 05/21/2023 10:25:23 05/21/19 24 05/21/2023 CBC AUTO W DIFF RBC 4.4 M/mm3 4.2-6. 4 Not Available ([facility]) [address] , [place], [address], 05/21/2023 10:25:23 05/21/19 24 05/21/2023 CBC AUTO W DIFF HGB 13.6 gm/dL 12.5-1 6.0 Not Available ([facility]) [address] , [place], [address], 05/21/2023 10:25:23 05/21/19 24 05/21/2023 CBC AUTO W DIFF HCT 41.0 % 37.0-4 7.0 Not Available ([facility]) [address] , [place], [address], 05/21/2023 10:25:23 05/21/19 24 05/21/2023 CBC AUTO W DIFF MCV 93.0 fL 78-100 Not Available ([facility]) [address] , [place], [address], 05/21/2023 10:25:23 05/21/19 24 05/21/2023 CBC AUTO W DIFF MCH 30.8 pg 27-31 Not Available ([facility]) [address] , [place], [address], 05/21/2023 10:25:23 05/21/19 24 05/21/2023 CBC AUTO W DIFF MCHC 33.2 g/dL 32-36 Not Available ([facility]) [address] , [place], [address], 05/21/2023 10:25:23 05/21/19 24 05/21/2023 CBC AUTO W DIFF RDW 12.2 % 11.5-1 4.0 Not Available ([facility]) [address] , [place], [address], 05/21/2023 10:25:23 05/21/19 24 05/21/2023 CBC AUTO W DIFF platelet count 409 K/uL 150-45 0 Not Available ([facility]) [address] , [place], [address], 05/21/2023 10:25:23 05/21/19 24 05/21/2023 CBC AUTO W DIFF MPV 8.8 fL 6-9.5 Not Available ([facility]) [address], [place], [address], 05/21/2023 10:25:23 05/21/19 24 05/21/2023 CBC AUTO W DIFF neutrophil% 69.3 % 43-65 high Not Available [facility] ([facility]) [address], [place], [address], 05/21/2023 10:25:23 05/21/19 24 05/21/2023 CBC AUTO W DIFF lymphocyte% 21.0 % 20.5-4 5.5 Not Available ([facility]) [address] [place], [address], 05/21/2023 10:25:23 05/21/19 24 05/21/2023 CBC AUTO W DIFF monocyte% 5.9 % 5.5-11 .7 Not Available ([facility]) [address] [place], [address], 05/21/2023 10:25:23 05/21/19 24 05/21/2023 CBC AUTO W DIFF eosinophil% 2.8 % 0.9-2. 9 Not Available ([facility]) [address] [facility] [place], [address], 05/21/2023 10:25:23 05/21/19 24 05/21/2023 CBC AUTO W DIFF basophil% 0.4 % 0.2-1. 0 Not Available ([facility]) [address], [place], [address], 05/21/2023 10:25:23 05/21/19 24 05/21/2023 CBC AUTO W DIFF immature granulocytes % 0.6 % 0.0-0. 8 Not Available ([facility]) [address] [facility], [place], [address], 05/21/2023 10:25:23 05/21/19 24 05/21/2023 CBC AUTO W DIFF nucleated red blood cells % 0.0 % Not Available [facility] ([facility]) [address] [facility], [place], [address], 05/21/2023 10:25:23 05/21/19 24 05/21/2023 CBC AUTO W DIFF neutrophil# 7.6 K/uL 2.2-4. 8 high Not Available ([facility]) [address] [facility], [place], [address], 05/21/2023 10:25:23 05/21/19 24 05/21/2023 CBC AUTO W DIFF lymphocyte# 2.3 cell/ mcL 1.3-2. 9 Not Available ([facility]) [address] [facility], [place], [address], 05/21/2023 10:25:23 05/21/19 24 05/21/2023 CBC AUTO W DIFF monocyte# 0.7 cell/ mcL 0.3-0. 8 Not Available ([facility]) [address] [facility], [place], [address], 05/21/2023 10:25:23 05/21/19 24 05/21/2023 CBC AUTO W DIFF eosinophil# 0.3 cell/ mcL 0-0.2 high Not Available ([facility]) [address], [place], [address], 05/21/2023 10:25:23 05/21/19 24 05/21/2023 CBC AUTO W DIFF basophil# 0.0 cell/ mcL 0.0-1. 0 Not Available ([facility]) [address], [place], [address], 05/21/2023 10:25:23 05/21/19 24 05/21/2023 CBC AUTO W DIFF immature gramulocytes # 0.07 K/uL Not Available [facility] ([facility]) [address], [place], [address], 05/21/2023 10:25:23 05/21/19 24 05/21/2023 CBC AUTO W DIFF nucleated red blood cells # 0.00 K/uL Not Available [facility] ([facility]) [address], [place], [address], 05/21/2023 10:25:23 05/21/19 24 05/21/2023 CBC AUTO W DIFF manual differential NO Not Available [facility] ([facility]) [address], [place], [address], 05/21/2023 10:25:23 05/21/19 24 05/21/2023 LIPAS E lipase 24 U/L 16-77 Not Available ([facility]) [address], [place], [address], 05/21/2023 10:35:15 05/21/19 24 05/21/2023 HEPAT IC FUNCT IONAL PANEL total protein 8.0 g/dL 6.4-8. 2 Not Available ([facility]) [address], [place], [address], 05/21/2023 10:35:16 05/21/19 24 05/21/2023 HEPAT IC FUNCT IONAL PANEL albumin 3.3 g/dL 3.4-5. 0 low Not Available ([facility]) [address] , [place], [address], 05/21/2023 10:35:16 05/21/19 24 05/21/2023 HEPAT IC FUNCT IONAL PANEL bilirubin direct 0.1 O.oo-0 .30 Not Available ([facility]) [address] , [place], [address], 05/21/2023 10:35:16 05/21/19 24 05/21/2023 HEPAT IC FUNCT IONAL PANEL bilirubin total 0.50 mg/dL 0.10-1 .00 Not Available ([facility]) [address], [place], [address], 05/21/2023 10:35:16 05/21/19 24 05/21/2023 HEPAT IC FUNCT IONAL PANEL bilirubin indirect 0.40 Not Available [facility] ([facility]) [address], [place], [address], 05/21/2023 10:35:16 05/21/19 24 05/21/2023 HEPAT IC FUNCT IONAL PANEL AST (SGOT) 18 U/L 0-37 Not Available [facility] ([facility]) [address] , [place], [address], 05/21/2023 10:35:16 05/21/19 24 05/21/2023 HEPAT IC FUNCT IONAL PANEL ALT (SGPT) 95 U/L 0-65 high Not Available [facility] ([facility]) [address] , [place], [address], 05/21/2023 10:35:16 05/21/19 24 05/21/2023 HEPAT IC FUNCT IONAL PANEL alk phosphatase 96 U/L 46-116 Not Available [facility] ([facility]) [address], [place], [address], 05/21/2023 10:35:16 07/08/19 25 07/07/2024 CULTU RE URINE results LT 07-09 734 No Signi fican t Growt h at Day 2 Not Available [facility] (Lab Registration) [address] [place], [address], 07/09/2024 07:36:27 07/08/19 25 07/07/2024 CULTU RE URINE note Unles s other fitzgerald noted testi ng perfo rmed at: [facility] [address] [place] [address] [phone] Constantino godinez MD CLIA: [id number] Not Available [facility] (Lab Registration) [address] [place], [address], 07/09/2024 07:36:27 07/08/19 25 07/07/2024 urina lysis , dipst ick Leukocytes (reference range) negati ve Not Available [address] [place], [address], 07/07/2024 11:13:18 07/08/19 25 07/07/2024 urina lysis , dipst ick Nitrite (reference range:) negati ve Not Available [address] [place], [address], 07/07/2024 11:13:18 07/08/19 25 07/07/2024 urina lysis , dipst ick Urobilinogen (reference range) 1 Not Available [address] [place], [address], 07/07/2024 11:13:18 07/08/19 25 07/07/2024 urina lysis , dipst ick Protein (reference range) 30 Not Available [address] [place], [address], 07/07/2024 11:13:18 07/08/19 25 07/07/2024 urina lysis , dipst ick pH (reference range 5-8.5) 7.5 Not Available [address] [place], [address], 07/07/2024 11:13:18 07/08/19 25 07/07/2024 urina lysis , dipst ick Blood (reference range:) negati ve Not Available [address] [place], [address], 07/07/2024 11:13:18 07/08/19 25 07/07/2024 urina lysis , dipst ick Specific [place] (reference range) 1.020 Not Available [address] [place], [address], 07/07/2024 11:13:18 07/08/19 25 07/07/2024 urina lysis , dipst ick Ketone (reference range) negati ve Not Available [address] [place], [address], 07/07/2024 11:13:18 07/08/19 25 07/07/2024 urina lysis , dipst ick Bilirubin (reference range) negati ve Not Available [address] [place], [address], 07/07/2024 11:13:18 07/08/19 25 07/07/2024 urina lysis , dipst ick Glucose (reference range) negati ve Not Available [address] [place], [address], 07/07/2024 11:13:18 07/08/19 25 07/07/2024 urina lysis , dipst ick Color (reference range: yellow-brown ) Yellow Not Available [facility] [address] [place], [address], 07/07/2024 11:13:18 12/18/19 25 12/18/2024 CBC WITH DIFFE RENTI AL/PL ATELE T WBC 11.9 x10e3 /uL 3.4-10 .8 above high normal Not Available [facility] ([facility]) [address] [facility], [place], [address], 12/18/2024 08:18:24 12/18/19 25 12/18/2024 CBC WITH DIFFE RENTI AL/PL ATELE T RBC 4.77 x10e6 /uL 3.77-5 .28 normal Not Available [facility] ([facility]) [address] [place], [address], 12/18/2024 08:18:24 12/18/19 25 12/18/2024 CBC WITH DIFFE RENTI AL/PL ATELE T hemoglobin 14.8 g/dL 11.1-1 5.9 normal Not Available [facility] ([facility]) [address] [place], [address], 12/18/2024 08:18:24 12/18/19 25 12/18/2024 CBC WITH DIFFE RENTI AL/PL ATELE T hematocrit 46.0 % 34.0-4 6.6 normal Not Available [facility] ([facility]) [address] [place], [address], 12/18/2024 08:18:24 12/18/19 25 12/18/2024 CBC WITH DIFFE RENTI AL/PL ATELE T MCV 96 fL 79-97 normal Not Available [facility] ([facility]) [address] [place], [address], 12/18/2024 08:18:24 12/18/19 25 12/18/2024 CBC WITH DIFFE RENTI AL/PL ATELE T MCH 31.0 pg 26.6-3 3.0 normal Not Available [facility] ([facility]) [address] [facility], [place], [address], 12/18/2024 08:18:24 12/18/19 25 12/18/2024 CBC WITH DIFFE RENTI AL/PL ATELE T MCHC 32.2 g/dL 31.5-3 5.7 normal Not Available [facility] ([facility]) [address] [facility], [place], [address], 12/18/2024 08:18:24 12/18/19 25 12/18/2024 CBC WITH DIFFE RENTI AL/PL ATELE T RDW 12.4 % 11.7-1 5.4 Not Available [facility] ([facility]) [address] [facility], [place], [address], 12/18/2024 08:18:24 12/18/19 25 12/18/2024 CBC WITH DIFFE RENTI AL/PL ATELE T platelets 429 x10e3 /uL 150-45 0 normal Not Available [facility] ([facility]) [address] [facility], [place], [address], 12/18/2024 08:18:24 12/18/19 25 12/18/2024 CBC WITH DIFFE RENTI AL/PL ATELE T neutrophils 65 % not estab. normal Not Available [facility] ([facility]) [address] [facility], [place], [address], 12/18/2024 08:18:24 12/18/19 25 12/18/2024 CBC WITH DIFFE RENTI AL/PL ATELE T lymphs 22 % not estab. normal Not Available [facility] ([facility]) [address] [facility], [place], [address], 12/18/2024 08:18:24 12/18/19 25 12/18/2024 CBC WITH DIFFE RENTI AL/PL ATELE T monocytes 7 % not estab. normal Not Available [facility] ([facility]) [address] [facility], [place], [address], 12/18/2024 08:18:24 12/18/1912/18/2024 CBC WITH DIFFE RENTI AL/PL ATELE T eos 5 % not estab. normal Not Available [facility] ([facility]) [address] [facility], [place], [address], 12/18/2024 08:18:24 12/18/1912/18/2024 CBC WITH DIFFE RENTI AL/PL ATELE T basos 1 % not estab. normal Not Available [facility] ([facility]) [address] [facility], [place], [address], 12/18/2024 08:18:24 12/18/19 25 12/18/2024 CBC WITH DIFFE RENTI AL/PL ATELE T immature cells HEADER UP Not Available [facility] ([facility]) [address] [place], [address], 12/18/2024 08:18:24 12/18/19 25 12/18/2024 CBC WITH DIFFE RENTI AL/PL ATELE T neutrophils (absolute) 7.8 x10e3 /uL 1.4-7. 0 above high normal Not Available [facility] ([facility]) [address] [place], [address], 12/18/2024 08:18:24 12/18/19 25 12/18/2024 CBC WITH DIFFE RENTI AL/PL ATELE T lymphs (absolute) 2.6 x10e3 /uL 0.7-3. 1 normal Not Available [facility] ([facility]) [address] [place], [address], 12/18/2024 08:18:24 12/18/19 25 12/18/2024 CBC WITH DIFFE RENTI AL/PL ATELE T monocytes(ab solute) 0.8 x10e3 /uL 0.1-0. 9 normal Not Available [facility] ([facility]) [address] [facility], [place], [address], 12/18/2024 08:18:24 12/18/1912/18/2024 CBC WITH DIFFE RENTI AL/PL ATELE T eos (absolute) 0.6 x10e3 /uL 0.0-0. 4 above high normal Not Available [facility] ([facility]) [address] [facility], [place], [address], 12/18/2024 08:18:24 12/18/19 25 12/18/2024 CBC WITH DIFFE RENTI AL/PL ATELE T baso (absolute) 0.1 x10e3 /uL 0.0-0. 2 normal Not Available [facility] ([facility]) [address] [facility], [place], [address], 12/18/2024 08:18:24 12/18/1912/18/2024 CBC WITH DIFFE RENTI AL/PL ATELE T immature granulocytes 0 % not estab. Not Available [facility] ([facility]) [address] [facility], [place], [address], 12/18/2024 08:18:24 12/18/19 25 12/18/2024 CBC WITH DIFFE RENTI AL/PL ATELE T immature grans (abs) 0.0 x10e3 /uL 0.0-0. 1 Not Available [facility] ([facility]) [address] [facility], [place], [address], 12/18/2024 08:18:24 12/18/1912/18/2024 CBC WITH DIFFE RENTI AL/PL ATELE T NRBC HEADER UP Not Available [facility] ([facility]) [address] [facility], [place], [address], 12/18/2024 08:18:24 12/18/19 25 12/18/2024 CBC WITH DIFFE RENTI AL/PL ATELE T hematology comments: HEADER UP Not Available [facility] ([facility]) [address] [facility], [place], [address], 12/18/2024 08:18:24 12/18/1912/17/2024 COMP. METAB OLIC PANEL [...] at [email or web address] org. Not Available [facility] ([facility]) [address] [facility], [place], [address], 12/18/2024 08:18:25 12/18/1912/18/2024 COMP. METAB OLIC PANEL (14) glucose 73 mg/dL 70-99 normal Not Available [facility] ([facility]) [address] [facility], [place], [address], 12/18/2024 08:18:25 12/18/1912/18/2024 COMP. METAB OLIC PANEL (14) BUN 9 mg/dL 6-24 normal Not Available [facility] ([facility]) [address] [place], [address], 12/18/2024 08:18:25 12/18/1912/18/2024 COMP. METAB OLIC PANEL (14) creatinine 0.71 mg/dL 0.57-1 .00 normal Not Available [facility] ([facility]) [address] [facility], [place], [address], 12/18/2024 08:18:25 12/18/19 25 12/18/2024 COMP. METAB OLIC PANEL (14) eGFR 110 mL/mi n/1.7 3 >59 normal Not Available [facility] ([facility]) [address] [facility], [place], [address], 12/18/2024 08:18:25 12/18/19 25 12/18/2024 COMP. METAB OLIC PANEL (14) BUN/creatini ne ratio 13 9-23 normal Not Available [facility] ([facility]) [address] [facility], [place], [address], 12/18/2024 08:18:25 12/18/19 25 12/18/2024 COMP. METAB OLIC PANEL (14) sodium 140 mmol/ L 134-14 4 normal Not Available [facility] ([facility]) [address] [facility], [place], [address], 12/18/2024 08:18:25 12/18/19 25 12/18/2024 COMP. METAB OLIC PANEL (14) potassium 4.9 mmol/ L 3.5-5. 2 normal Not Available [facility] ([facility]) [address] [facility], [place], [address], 12/18/2024 08:18:25 12/18/19 25 12/18/2024 COMP. METAB OLIC PANEL (14) chloride 103 mmol/ L 96-106 normal Not Available [facility] ([facility]) [address] [facility], [place], [address], 12/18/2024 08:18:25 12/18/19 25 12/18/2024 COMP. METAB OLIC PANEL (14) carbon dioxide, total 22 mmol/ L 20-29 normal Not Available [facility] ([facility]) [address] [facility], [place], [address], 12/18/2024 08:18:25 12/18/19 25 12/18/2024 COMP. METAB OLIC PANEL (14) calcium 9.4 mg/dL 8.7-10 .2 normal Not Available [facility] ([facility]) [address] [place], [address], 12/18/2024 08:18:25 12/18/19 25 12/18/2024 COMP. METAB OLIC PANEL (14) protein, total 7.3 g/dL 6.0-8. 5 normal Not Available [facility] ([facility]) [address] [place], [address], 12/18/2024 08:18:25 12/18/1912/18/2024 COMP. METAB OLIC PANEL (14) albumin 4.3 g/dL 3.9-4. 9 normal Not Available [facility] ([facility]) [address] [place], [address], 12/18/2024 08:18:25 12/18/19 25 12/18/2024 COMP. METAB OLIC PANEL (14) globulin, total 3.0 g/dL 1.5-4. 5 Not Available [facility] ([facility]) [address] [place], [address], 12/18/2024 08:18:25 12/18/19 25 12/18/2024 COMP. METAB OLIC PANEL (14) bilirubin, total <0.2 mg/dL 0.0-1. 2 Not Available [facility] ([facility]) [address] [place], [address], 12/18/2024 08:18:25 12/18/19 25 12/18/2024 COMP. METAB OLIC PANEL (14) alkaline phosphatase 85 IU/L 41-116 normal Not Available [facility] ([facility]) [address] [place], [address], 12/18/2024 08:18:25 12/18/19 25 12/18/2024 COMP. METAB OLIC PANEL (14) AST (SGOT) 16 IU/L 0-40 normal Not Available [facility] ([facility]) [address] [facility], [place], [address], 12/18/2024 08:18:25 12/18/19 25 12/18/2024 COMP. METAB OLIC PANEL (14) ALT (SGPT) 16 IU/L 0-32 normal Not Available [facility] ([facility]) [address] [facility], [place], [address], 12/18/2024 08:18:25 12/18/19 25 12/18/2024 VITAM IN [...] 1. IOM (Inst itute of Medic ine). 2009. Dieta ry refer ence intak es for calci um and D. Angela almendarez [place]: [employer] . 2. Nasra patel [place], Riaz osorio [place], [place] off-[place] errar i FRAGA, et al. Evalu ation , treat ment, and preve ntion of vitam in D defic iency : an Endoc rine Socie ty clini phyllis pract ice guide line. JCEM. 2010; 96(7) :1911 -30. Not Available [facility] ([facility]) [address] [facility], [place], [address], 12/18/2024 08:18:25 05/20/19 24 05/20/2023 , kalpesh galvez No observ ation record ed. [email or web address] [facility] (Radiology) [address] [place], [address], 05/21/2023 11:10:21 05/20/19 24 05/20/2023 imagi ng/di sammy tic resul t No observ ation record ed. [email or web address] Not Available 2023 13:47:16 12/17/19 25 12/15/2024 XR, knee, 3 view [facility] [address] [place] [address] Phone: Fax: Name: YESSENIA BRAY Exam Date: : 1985 Age 38 years Gender : F Access ion: [id number] Physic eliseo: DAVID BLAKE Facili ty: [facility] Facili ty HSV: Outpat ient Exam: KNEE [...] Electr onical ly signed by: SHAR HORNE 025 Thank you for referr YESSENIA Sheth to [facility]. Legall y authen ticate d by FRANK RODRIGUEZ MD 2024-03 16:46: 17 CC'ed Logic: Orderi ng Provid er: MICHELLE HERNANDEZ CC Provid er: CONCHITA Navarro Attend ing Provid er: MICHELLE HERNANDEZ Referr ing Provid er: MICHELLE HERNANDEZ Admitt ing Provid er: MICHELLE [email or web address] [facility] (Radiology) [address] [place], [address], 12/16/2024 12:38:04 12/17/19 25 12/15/2024 XR, knee, 3 view No observ ation record ed. iisable [facility] (Radiology) [address] [place], [address], 12/16/2024 15:34:46 12/18/1912/17/2024 MRI knee witho ut cont RT [facility] [address] [place] [address] Phone: Fax: Name: YESSENIA BRAY Exam Date: : 1985 Age 38 years Gender : F Access ion: [id number] Physic eliseo: DAVID BLAKE Facili ty: [facility] Facili ty HSV: Outpat ient Exam: MRI KNEE WITHOU T CONT RT MR KNEE WITHOU T IV CONTRA ST RIGHT, 025 8:34 AM CDT. INDICA TION: abnorm ality of gait and mobili ty TECHNI QUE: Multip lanar, multis equenc e MRI of the knee withou t contra st. Compar flores is made to plain film of 025. FINDIN GS: There is normal anatom ic alignm ent of the bones of the knee withou t eviden ce of fractu re or disloc ation. There is minima l medial femora l condyl e bone marrow edema. The anteri or and shop welder ior crucia te ligame nts are intact [...] l condyl e bone marrow edema. No architectural intern al derang ement of the knee. Electr onical ly signed by: Edgar Ng MD 2024 10:14 AM EDT RP Workst ation: [id number] Dictat ed By: Edgar Ng Transc ribed By: Transc ribed On: 025 9:34 AM Electr onical ly signed by: Edgar Ng 025 Thank you for referr emil BRAYYESSENIA to [facility]. Legall y authen ticate d by JENNIFER ZHU MD 2024- 09:34: 53 CC'ed Logic: Orderi ng Provid er: MICHELLE HERNANDEZ CC Provid er: CONCHITA Navarro Attend ing Provid er: MICHELLE EHRNANDEZ Referr ing Provid er: MICHELLE HERNANDEZ Admitt ing Provid er: MICHELLE [email or web address] [facility] (Radiology) [address] [place] [address] [place], [address], 12/20/2024 08:19:48 12/18/19 25 12/17/2024 imagi ng inter preta tion No observ ation record ed. [id number] [facility], [address], 12/20/2024 09:00:39 Result Notes Documentation Provider Name and Address Organization Details Recorded Time Pathology Study : reviewed - acute and chronic cholecystitis with gallstones, no liver abnormality Crystal Nava MD [address], [place], [address], [facility] [place] [facility] [place] & [place] 05/26/2023 12:11:10 Xr, Knee, 3 View : [address] [place] [place] [id number] Name: YESSENIA BRAY Exam Date: 12/15/2024 : 1985 Age 38 years Gender: F Physician: DAVID CARMONA Facility: [facility] Facility HSV: Outpatient Exam: [id number] [...] SHAR VALENZUELA 12/15/2024 Thank you for referring YESSENIA BRAY to [facility]. Legally authenticated by NICOLAS RODRIGUEZ MD 2024-12-15 16:46:17 CC'ed Logic: Ordering Provider: MATHEW BROWN Provider: CONCHITA COLEMAN Attending Provider: MATHEW HERNANDEZ Referring Provider: MATHEW HERNANDEZ Admitting Provider: FRANCISCO REED [address] [place], [place] [id number] [place] [facility] - [place] & [place] 12/16/2024 12:38:04 Problems Name Problem SNOMED Code Status Onset Date Resolution Date Notes Provider Name and Address Organization Details Recorded Time Mixed anxiety and depressive disorder 482384332 Active 022 Mavis Pardini null, [place] [facility] [place] & [place] 2 11:52:29 Allergic rhinitis 13557975 Active 022 Mavis Pardini null, [place] [facility] [place] & [place] 2 11:52:39 Morbid obesity 566178402 Active 024 Mavis Pardini null, [place] [facility] [place] & [place] 4 08:28:10 Problem Notes None recorded. Procedures Surgical History Date Name Laterality Status Provider Name and Address Organization Details Recorded Time 05/21/19 24 Cholecystectomy completed Luz Capellan [place] [facility] & [place] 06/02/2023 10:40:16 03/17/18 90 ENT Surgery completed Mavis Skelton [place] - [facility] & [place] 05/15/2023 08:26:43 Imaging Results None recorded. Procedure [...] mass index (BMI) Body weight Body temperature Oxygen saturation Oxygen saturation in Arterial blood by Pulse oximetry Heart rate Systolic And Diastolic Provider Name and Address Organization Details Last Updated DateTime 4 165.1 cm 49.1 kg/m2 065026. 75 g 98.1 [degF] 95 % 95 % 79 /min 110/82 mm[Hg] [facility] [place] & [place] 4 13:57:41 Date Recorded Body height Body mass index (BMI) Body weight Body temperature Oxygen saturation Oxygen saturation in Arterial blood by Pulse oximetry Heart rate Systolic And Diastolic Provider Name and Address Organization Details Last Updated DateTime 4 165.1 cm 49.8 kg/m2 141385. 91 g 97.3 [degF] 98 % 98 % 93 /min 125/84 mm[Hg] [facility] [place] & [place] 4 13:25:52 Date Recorded Body weight Body temperature Oxygen saturation Oxygen saturation in Arterial blood by Pulse oximetry Heart rate Respiratory rate Systolic And Diastolic Provider Name and Address Organization Details Last Updated DateTime 5 676191. 79 g 97 [degF] 99 % 99 % 119 /min 18 /min 140/79 mm[Hg] Sammy Matiasles [facility] & [place] 5 15:26:51 Social History Question Answer Notes LastModified by Organizat ion Details LastModified Time Tobacco Smoking Status Former Smoker Mavis Nafisa michaud, [facility] & [place] 02/11/2023 12:01:06 Do You Have An Advance Directive? No Information n ot available 02/11/2023 If You Are , What Was Your Level Of Alcohol Consumption Prior To ? None [email or web address] Information not available 12/15/2024 Do You Wear [...] COVID-19 While That Case Was Ill? No [email or web address] Information n ot available 12/15/2024 In The 14 Days Before Symptom Onset, Have You Had Close Contact With A Person Who Is Under Investigation For COVID-19 While That Person Was Ill? No [email or web address] Information not available 12/15/2024 Have You Been To An Area Known To Be High Risk For COVID-19? No [email or web address] Information not available 12/15/2024 Are You Deaf Or Do You Have Serious Difficulty Hearing? No [email or web address] Information not available 12/15/2024 What Type Of Diet Are You Following? REGULAR [email or web address] Information n ot available 12/15/2024 Have You Processed Blood Or Body Fluids From An Ebola Virus Disease Patient Without Appropriate PPE? No [email or web address] Information not available 12/15/2024 Do You Reside In Or Have You Traveled To An Area Where Ebola Virus Transmission Is Active? No [email or web address] Information not available 12/15/2024 Have There Been Any Changes To Your Family Or Social Situation? No [email or web address] Information no t available 12/15/2024 What Is The Fluoride Status Of Your Home? Unknown [email or web address] Information not available 12/15/2024 When Did You Quit Smoking? 1-5yearssince chris ward Information not available 03/04/2023 Are There Any Guns Present In Your Home? No [email or web address] Information not available 12/15/2024 Have You Recently Or Are You Planning To Travel To An Area With Zika Virus? No [email or web address] Information not available 12/15/2024 Do You Use Insect Repellent Routinely? Yes [email or web address] Information not available 12/15/2024 Do You Feel Safe At Home? Yes [email or web address] Information not available 12/15/2024 Do You Have A Medical Power Of Soccer Commentator? No Information not available 12/15/2024 What Was The Date Of Your Most Recent Tobacco Screening? 12/15/2024 [email or web address] Information not available 12/15/2024 Do You Have Any Pets? Yes [email or web address] Information not available 12/15/2024 Do You Use Your Seat Belt Or Car Seat Routinely? Yes [email or web address] Information not available 12/15/2024 Do You Have Smoke And Carbon Monoxide Detectors In Your Home? Yes [email or web address] Information not available 12/15/2024 Are You Passively Exposed To Smoke? No Information no t available 02/11/2023 How Much Tobacco Do You Smoke? No Information not available 02/11/2023 Do You Use Sunscreen Routinely? Yes [email or web address] Information not available 12/15/2024 Has Tobacco Cessation Counseling Been Provided? No Information not available 03/04/2023 Do You Have Difficulty Walking Or Climbing Stairs? No [email or web address] Information not available 12/15/2024 Are You Currently In School? No [email or web address] Information not available 12/15/2024 Sex: Female Functional Status Question Answer Note LastModified by Organizat ion Details LastModified Time Do you use any illicit or recreational drugs? No Information not available 01/24/2022 Do you or have you ever used any other forms of tobacco or nicotine? Yes [email or web address] Information not available 05/20/2023 What is your level of alcohol consumption? None Information not available 01/24/2022 Do you or have you ever used smokeless tobacco? Never used smokeless tobacco Information not available 05/15/2023 Are you currently employed? Yes [email or web address] Information not available 12/15/2024 Do you have transportation difficulties? No xrwhzqvo33 Information not available 12/15/2024 Are you able to walk independently without assistance or assistive devices? YESWOREST eckwtvzu82 Information not available 12/15/2024 Do you have difficulty doing errands alone? No [email or web address] Information not available 12/15/2024 Are you able to care for yourself independently? Yes [email or web address] Information not available 12/15/2024 Do you have difficulty dressing, bathing, grooming, or toileting? No [email or web address] Information not available 12/15/2024 Do you or have you ever used e-cigarettes or vape? Current user of electronic cigarettes [email or web address] Information not available 05/20/2023 What is your exercise level? Occasional Information not available 02/11/2023 Mental Status Question Answer Note LastModified by Organizat ion Details LastModified Time Do you feel stressed (tense, restless, nervous, or anxious, or unable to sleep at night)? [id number] Information not available 02/11/2023 Do you have difficulty concentrating, remembering or making decisions? No [email or web address] Information no t available 12/15/2024 Family History Relationship Description Onset Age of this Age Resolved Age Notes LastModified by Organization Details LastModified Time Father No current problems or disability tpardini Not available 01/24 11:52:50 Mother No current problems or disability tpardini Not available 01/24 11:52:50 Medical History Condition Response Depression Y Anxiety Disorder Y Obesity Y High Cholesterol Y Bronchitis Y Gynecological History Statement/Question Response Menses Monthly N Abnormal Pap N Current Control Method IUD Sexually Active? Y Obstetrics History GPAL:G 0 P 0 0 0 0 Past Encounters Encounter ID Performer Location Encounter Start Date Encounter Closed Date Diagnosis/Indication Diagnosis SNOMED-CT Code Diagnosis ICD10 Code Diagnosis IMO Codes Diagnosis Note [id number] Chace Lee MD [facility] [address] [address] 01/24/2022 10:50:45 01/24/2022 12:09:56 Pain in throat 084646728 R07.0 Upper resp iratory infection 91928914 J06.9 in view of patient's lingering problems are will put her on a course of steroids, and Augmentin she is given a sample pack of breztripat ient is also requesting a referral to ENT surgeon/al stefanigist [id number] Jose Colin MD [facility] [address] [facility] [place] [address] 01/16/2023 10:58:58 01/16/2023 11:50:56 Cholelithiasis without obstruction 19282659 K80.80 [id number] NIRAJ GAMEZ DO [facility] General Surgery - [address] [place] [address] Drive, [address] [facility] [place] [address] 01/20/2023 13:18:21 01/24/2023 13:18:07 Right upper quadrant pain 707667602 R10.11 Cholelithi asis without obstruction 84270600 K80.20 [id number] Crystal Nava MD [facility] General Surgery [address] [place] [address],[address] [place] [address] 01/30/2023 09:58:09 01/30/2023 11:45:53 Cholelithiasis without obstruction 77397336 K80.20 Symptomati c cholelithi asis. I have scheduled the patient for robotic assisted laparoscop ic multiport cholecyste ctomy. Informed consent was obtained. Risks and benefits of the procedure, including but not limited to, bleeding, infection, damage to surroundin g structures and ongoing symptoms were discussed. Standard of care efforts are taken to minimize risks. Typical hospital stay and recovery were reviewed. The typical postoperat iliana pain regimen and avoidance of narcotics were discussed. The patient verbalized understand ing of the plan including the risks and benefits. Appropriat e preoperati ve testing as clinically indicated were ordered as a part of this patient's care. Body mass index 40+ - severely obese 512974165 Z68.42 [id number] Chace Lee MD [address] [place] [address] 02/11/2023 11:52:01 02/11/2023 12:07:55 Upper respiratory infection 76505360 J06.9 in view of patient's lingering problems are will put her on a course of steroids, and Augmentin Acute bronchitis 0023922 2 J20.9 [id number] Jose Colin MD [address] [place] [address] 03/04/2023 11:42:32 03/04/2023 12:25:11 Streptococcal tonsillitis 76542592 J03.01 Persistent /recurrent streptococ phyllis tonsilliti s we will treat with cefdinir b.i.d. for 10 days also given Diflucan for treatment of yeast infection. [id number] Chace Lee MD [address] [place] [address] 05/15/2023 08:23:34 05/15/2023 08:44:36 Acute sinusitis 90964497 J01.90 patient to continue to take Augmentin and prednisone as prescribed . She has been advised to get some over-the-c ounter Sudafed to help with the congestion . I also want her to start taking ibuprofen 800 mg 3 times a day for 3 days. [id number] Crystal Nava MD [facility] General Surgery [address] [facility] [place] [address] 05/20/2023 13:24:33 05/20/2023 15:12:51 Gallstone acute pancreatitis 361711662 K85.10 gallstone pancreatit is, concern for acute cholecysti tis. LFTs are elevated, although bilirubin and alkaline phosphatas e are normal. Will recheck these in the morning, may possibly need to perform cholangiog doreen. Consider liver biopsy due to what appears to be fatty liver which may account for the elevated AST and ALT. [id number] Crystal Nava MD [facility] General Surgery [address] [facility] [place] [address] 06/03/2023 13:05:48 06/03/2023 13:50:28 Cholelithiasis without obstruction 79387048 K80.20 stable postop. I do not see any evidence of incisional hernia. I suspect that this may have been muscle spasm related to trocar placement as well as body habitus. Given increased risk for hernia developmen t, patient was given work release with 1 additional week of activity restrictio n. [id number] GAVIN MARSHALL NP [address] [place] [address] 07/07/2024 11:09:51 07/08/2024 07:26:55 Dysuria 83689820 R30.0 [id number] FRANCISCO HERNDON [address] [place] [address] 12/15/2024 15:23:00 12/16/2024 07:47:57 Pain of right knee joint 8329349849 69297 M25.561 098808 anterior right knee painX-ray order sentPhysic al therapy referral sentInstru cted patient to rest, ice, and elevate the area Unable to weight-bear on right leg 205822574 R26.89 60863018 exam concerning for tear of ACLLimited mobility requiring use of wheelchair Inability of patient to tolerate or bear weight on right lower extremityM RI order sent [id number] GAVIN MARSHALL NP [address] [place] [address] 12/17/2024 12:07:11 12/17/2024 12:17:49 Edema of bone marrow 9956566876 107 R93.7 83245691 blood drawn in the right AC by Mavis Skelton CMA, patient tolerated well. Health Concerns Section Related Observation LastModified by Organization Detai ls LastModified Time None Recorded Concern Status LastModified by Organization Details LastModified Time None Recorded Advance Directives Directive N: Payers Insurance Date Sequence Insurance Name Policy Number Policy Davis Covered Member ID Davis Member ID Guarantor Name 12/15/2024 1 [place] [id number] 1 Shar Moya [id number] Yessenia R Asa 01/16/[address] [facility] [id number] Yessenia Asa [id number] Yessenia R Asa 02/11/2023 1 *SELF PAY* Ma danny Galvez Asa 10/04/[address] [facility] [id number] Ida R Asa [id number] Yessenia R Asa 10/04/2023 1 [place] [id number] 1 Shar Moya [id number] Yessenia R Asa 12/15/2024 1 [place] [id number] 1 Shar [id number] Yessenia R Asa 07/19/2024 2 [facility] MAR[place] LUISACD Ida R Asa [id number] Yessenia R Asa 01/30/2022 1 [facility] (MEDICARE REPLACEMENT/AD VANTAGE - HMO) [place] LUISAC[place] Ida Asa [id number] Yessenia R Asa Notes Date Note Type Note Provider Name and Address Organization Details Recorded Time 05/20/2023 text/html Patient returns due to gallbladder problems. I last saw her in February 2023 and she was initially scheduled for cholecystectomy. She subsequently canceled due to strep. Patient states he had been doing well until this weekend where she developed 4 days of severe unremitting right upper quadrant abdominal pain. She was seen in the ER at [facility] 2 days ago. At that time, she had elevated lipase and white blood cell count was 12.0. Bilirubin and alkaline phosphatase were normal. AST was 284 an ALT 178. The patient has undergone repeat ultrasound today showing no evidence of ductal dilation or gallbladder wall thickening. She does have what appears to be fatty liver and possibly some hemangiomas. She is feeling somewhat better, continues having right upper quadrant pain with food. Patient states that she completed a course of antibiotics 10 days ago due to a sinus infection, still has an occasional irritant cough Crystal Nava MD [address], [place], [address], [facility] - [facility] & [place] 05/20/2023 15:00:43 06/03/2023 text/html Ten days status post robotic cholecystectomy and liver biopsy. Pathology showed chronic cholecystitis with gallstones and normal liver. Patient states she was doing well until yesterday when she noticed a pulling sensation in her right mid abdomen. She has had several sharp, self-limited stabs of pain and noted that the area looks somewhat strange. Crystal Nava MD [address], [place], [address], [facility] - [facility] & [place] 06/03/2023 15:51:01 12/15/2024 text/html ROS as noted in the HPI 38-year-old female presents to the clinic with acute complaints of anterior right knee pain. She reports that she woke up this morning and experienced excruciating pain within the anterior portion of her right knee after she began walking this morning. She reports that she recently started new job which requires her to be on her feet for 8-10 hours per day for the last 1-1/2 weeks. Reports that she had experienced some sharp pain approximately 2-3 days ago in her right knee while she was walking barefoot. She reports that the pain has worsened over those last 2 days and became so unbearable that she has not been able to ambulate properly and is currently not able to bear any weight on that right leg. She was brought into the exam room via wheelchair and escorted with wheelchair to receive x-ray imaging. Denies warmth to the area, swelling, calf pain, shortness on breath, chest pain, headaches, vision abnormalities, abdominal pain, nausea, vomiting, fever, and chills. FRANCISCO HERNDON [address] [place] [address], [address], [place] - [facility] - [place] & [place] 12/15/2024 16:40:11 OBGyn Episode No OBEpisode recorded.
--- OUTSIDE RECORDS SUMMARY | 2025-01-10 06:14 | XMS_ITS | Continuity of Care Document ---
Author Organization [facility] Address [address] [address] Assessment No assessment recorded. Plan of Treatment Reminders Order Date Submit Date Provider Last Modified By Organization Details Last Modified Time Details Appointments None recorded. Lab None recorded. Referral None recorded. Procedures None recorded. Surgeries None recorded. Imaging MRI, knee, w/o contrast 2024 025 [email or web address] [facility] (Scheduling), [address] [place], [address], 5 07:53:16 XR, knee, 3 view 2024 025 [email or web address] [facility] (Scheduling), [address] [place], [address], 5 11:08:18 Medication Orders None recorded. Patient TargetsNo targets recorded. Patient InstructionsNo instructions recorded. Reason for Referral None Reported. Results Created Date Observation Date Name Description Value Unit Range Abnormal Flag Note LastModifiedBy Organization Detail LastModifiedTime 12/17/1912/15/2024 XR, knee, 3 view [facility] n [facility] Hospit al [address] [place] [address] Phone: Fax: Name: YESSENIA BRAY Exam Date: 025 : 1985 Age 38 years Gender : F Access ion: [id number] Physic eliseo: DAVID BLAKEi ty: [facility] Facili ty HSV: Outpat ient Exam: KNEE [...] Thank you for referr [facility] Legall y authen ticate d by FRANK RODRIGUEZ MD 2024- 0 16:46: 17 CC'ed Logic: Orderi ng Provid er: MICHELLE HERNANDEZ CC Provid er: CONCHITA Navarro Attend ing Provid er: MICHELLE HERNANDEZ Referr ing Provid er: MICHELLE HERNANDEZ Admitt ing Provid er: MICHELLE HERNANDEZ [email or web address] [facility] (Radiology) [address] [place], [address], 12/16/2024 12:38:04 12/17/1912/15/2024 XR, knee, 3 view No observ ation record ed. iisable [facility] (Radiology) [place], [address], 12/16/2024 15:34:46 12/18/1912/17/2024 MRI knee witho ut cont RT [facility] [address] [place] [address] Phone: Fax: Name: YESSENIA BRAY Exam Date: : 1985 Age 38 years Gender : F Access ion: [id number] Physic eliseo: DAVID BLAKE Facili ty: [facility] Facili ty HSV: Outpat ient Exam: MRI [...] bone marrow edema. The anteri or and driller portable ior crucia te ligame nts are intact [...] l condyl e bone marrow edema. No applications intern al derang ement of the knee. Electr onical ly signed by: Edgar Ng MD 2024 10:14 AM EDT RP Workst ation: [id number] Dictat ed By: Edgar Ng Transc ribed By: Transc ribed On: 9:34 AM Electr onical ly signed by: Edgar Ng Thank you for referr emil YESSENIA BRAY to [facility] ity Hospit al. Legall y authen ticate d by JENNIFER ZHU MD 2024-03 0 09:34: 53 CC'ed Logic: Orderi ng Provid er: MICHELLE HERNANDEZ CC Provid er: CONCHITA Navarro Attend ing Provid er: MICHELLE HERNANDEZ Referr ing Provid er: MICHELLE HERNANDEZ Admitt ing Provid er: MICHELEL HERNANDEZ [email or web address] [facility] (Radiology) [address] [place], [address], 12/20/2024 08:19:48 12/18/19 25 12/17/2024 imagi ng inter preta tion No observ ation record ed. [email or web address] [facility] (Radiology) [address] [place], [address], 12/20/2024 09:00:39 Result Notes None recorded. Problems Name Problem SNOMED Code Status Onset Date Resolution Date Notes Provider Name and Address Organization Details Recorded Time Mixed anxiety and depressive disorder 626999956 Active 022 Mavis Pardini null, [place] [facility] [place] [facility] [place] 2 11:52:29 Allergic rhinitis 66626464 Active 022 Mavis Pardini null, [place] [facility] [place] [facility] [place] 2 11:52:39 Morbid obesity 076331117 Active 024 Mavis Pardini null, [place] [facility] [place] [facility] [place] 4 08:28:10 Problem Notes None recorded. Procedures Surgical History Date Name Laterality Status Provider Name and Address Organization Details Recorded Time 05/21/19 24 Cholecystectomy completed Luz Capellan [place] [facility] [place] [facility] [place] 06/02/2023 10:40:16 03/17/18 90 ENT Surgery completed Mavis Pardini [place] [facility] [place] [facility] [place] 05/15/2023 08:26:43 Imaging Results None recorded. Procedure [...] Available Not Available Vitals Date Recorded Body weight Body temperature Oxygen saturation Oxygen saturation in Arterial blood by Pulse oximetry Heart rate Respiratory rate Systolic And Diastolic Provider Name and Address Organization Details Last Updated DateTime 5 230247. 79 g 97 [degF] 99 % 99 % 119 /min 18 /min 140/79 mm[Hg] Sammy QUEEN [facility] [place] 5 15:26:51 Social History Question Answer Notes LastModified by Organizat ion Details LastModified Time Tobacco Smoking Status Former Smoker Mavis Skelton null, [place] [facility] & [place] 02/11/2023 12:01:06 Do You Have An Advance Directive? No Information n ot available 02/11/2023 If You Are , What Was Your Level Of Alcohol Consumption Prior To ? None [email or web address] Information not available 12/15/2024 Do You Wear A Helmet When Biking? Yes [email or web address] Information not available 12/15/2024 Are You Blind Or Do You Have Difficulty Seeing? No Information n ot available 02/11/2023 What Is Your Level Of Caffeine Consumption? Moderate Information not available 03/04/2023 In The 14 Days Before Symptom Onset, Have You Had Close Contact With A Laboratory-confirm ed COVID-19 While That Case Was Ill? No [email or web address] Information n ot available 12/15/2024 In The 14 Days Before Symptom Onset, Have You Had Close Contact With A Person Who Is Under Investigation For COVID-19 While That Person Was Ill? No [email or web address] Information not available 12/15/2024 Have You Been To An Area Known To Be High Risk For COVID-19? No [email or web address] Information not available 12/15/2024 Are You Deaf Or Do You Have Serious Difficulty Hearing? No [email or web address] Information not available 12/15/2024 What Type Of Diet Are You Following? REGULAR [email or web address] Information n ot available 12/15/2024 Have You Processed Blood Or Body Fluids From An Ebola Virus Disease Patient Without Appropriate PPE? No [email or web address] Information not available 12/15/2024 Do You Reside In Or Have You Traveled To An Area Where Ebola Virus Transmission Is Active? No [email or web address] Information not available 12/15/2024 Have There Been Any Changes To Your Family Or Social Situation? No [email or web address] Information no t available 12/15/2024 What Is The Fluoride Status Of Your Home? Unknown Information not available 12/15/2024 When Did You Quit Smoking? 1-5yearssince lastcigarette Information not available 03/04/2023 Are There Any Guns Present In Your Home? No [email or web address] Information not available 12/15/2024 Have You Recently Or Are You Planning To Travel To An Area With Zika Virus? No [email or web address] Information not available 12/15/2024 Do You Use Insect Repellent Routinely? Yes [email or web address] Information not available 12/15/2024 Do You Feel Safe At Home? Yes [email or web address] Information not available 12/15/2024 Do You Have A Medical Power Of Aircraft Engine Mechanic Overhaul? No [email or web address] Information not available 12/15/2024 What Was The Date Of Your Most Recent Tobacco Screening? 12/15/2024 [email or web address] Information not available 12/15/2024 Do You Have Any Pets? Yes [email or web address] Information not available 12/15/2024 Do You Use Your Seat Belt Or Car Seat Routinely? Yes [email or web address] Information not available 12/15/2024 Do You Have Smoke And Carbon Monoxide Detectors In Your Home? Yes [email or web address] Information not available 12/15/2024 Are You Passively Exposed To Smoke? No Information no t available 02/11/2023 How Much Tobacco Do You Smoke? No Information not available 02/11/2023 Do You Use Sunscreen Routinely? Yes [email or web address] Information not available 12/15/2024 Has Tobacco Cessation Counseling Been Provided? No Information not available 03/04/2023 Do You Have Difficulty Walking Or Climbing Stairs? No [email or web address] Information not available 12/15/2024 Are You Currently In School? No [email or web address] Information not available 12/15/2024 Sex: Female Functional Status Question Answer Note LastModified by Organizat ion Details LastModified Time Do you use any illicit or recreational drugs? No Information not available 01/24/2022 Do you or have you ever used any other forms of tobacco or nicotine? Yes [email or web address] Information not available 05/20/2023 What is your level of alcohol consumption? None Information not available 01/24/2022 Do you or have you ever used smokeless tobacco? Never used smokeless tobacco Information not available 05/15/2023 Are you currently employed? Yes Information not available 12/15/2024 Do you have transportation difficulties? No Information not available 12/15/2024 Are you able to walk independently without assistance or assistive devices? YESWOREST Information not available 12/15/2024 Do you have difficulty doing errands alone? No [email or web address] Information not available 12/15/2024 Are you able to care for yourself independently? Yes [email or web address] Information not available 12/15/2024 Do you have difficulty dressing, bathing, grooming, or toileting? No [email or web address] Information not available 12/15/2024 Do you or have you ever used e-cigarettes or vape? Current user of electronic cigarettes [email or web address] Information not available 05/20/2023 What is your exercise level? Occasional Information not available 02/11/2023 Mental Status Question Answer Note LastModified by Organizat ion Details LastModified Time Do you feel stressed (tense, restless, nervous, or anxious, or unable to sleep at night)? [id number] Information not available 02/11/2023 Do you have difficulty concentrating, remembering or making decisions? No [email or web address] Information no t available 12/15/2024 Family History Relationship Description Onset Age of this Age Resolved Age Notes LastModified by Organization Details LastModified Time Father No current problems or disability tpardini Not available 01/24 11:52:50 Mother No current problems or disability tpardini Not available 01/24 11:52:50 Medical History Condition Response Anxiety Disorder Y Obesity Y Bronchitis Y Depression Y High Cholesterol Y Gynecological History Statement/Question Response Menses Monthly N Abnormal Pap N Current Control Method IUD Sexually Active? Y Obstetrics History GPAL:G 0 P 0 0 0 0 Past Encounters Encounter ID Performer Location Encounter Start Date Encounter Closed Date Diagnosis/Indication Diagnosis SNOMED-CT Code Diagnosis ICD10 Code Diagnosis IMO Codes Diagnosis Note [id number] FRANCISCO HERNDON [facility] [address] [address] 12/15/2024 15:23:00 12/16/2024 07:47:57 Pain of right knee joint 5965255718 29663 M25.561 547304 anterior right knee painX-ray order sentPhysic al therapy referral sentInstru cted patient to rest, ice, and elevate the area Unable to weight-bear on right leg 021847701 R26.89 50021754 exam concerning for tear of ACLLimited mobility requiring use of wheelchair Inability of patient to tolerate or bear weight on right lower extremityM RI order sent Health Concerns Section Related Observation LastModified by Organization Detai ls LastModified Time None Recorded Concern Status LastModified by Organization Details LastModified Time None Recorded Payers Encounter Date Sequence Insurance Name Policy Number Policy Davis Covered Member ID Davis Member ID Guarantor Name 12/15/2024 1 [employer] [id number] Shar Moya [id number] Yessenia Bray Notes Date Note Type Note Provider Name and Address Organization Details Recorded Time 12/15/2024 text/html ROS as noted in the [...] nausea, vomiting, fever, and chills. FRANCISCO HERNDON [address] [facility], [place], [address], [facility] [place] 12/15/2024 16:40:11 OBGyn Episode No OBEpisode recorded.
== END ==
LOC: SL 06:11
PROVIDERS: PCP Physician Assistant; Visit Provider Physician Assistant
DX: G47.33 Obstructive sleep apnea (adult) (pediatric) (principal); G47.36 Sleep related hypoventilation in conditions classified elsewhere
CPT/HCPCS: G0399